=== PATIENT | female | born 1950 | race Caucasian/White ===

== ENCOUNTER → 2016-12-03 | Outpatient (CLI) | payer OTHER ==
[~2016-12-03] MED LIST: ACET-24 PO; ASPI81TA28 PO; BACTRIM PO; BUPRTAB51 PO; ESCI1TAB10 PO; FAMO20TA11 PO; IBUP-103 PO; MELO15TA4 PO; ONDA8TAB12 PO; RXC5 PO; SENNTAB23 PO; THY/30 PO; TRIA37.5 PO; ULT50X PO; VITAMIN D PO; XRL10 PO; [UNRECOGNIZED DRUG - OTHER] PO
== END | disposition home or self-care (01) ==
LOC: C.RDSM 13:59
PROVIDERS: ATTEND Physical Medicine & Rehabilitation Sports Medicine
DX: M25.561 Pain in right knee (principal)

== ENCOUNTER 2017-01-30 07:16 | Inpatient (IN) | payer OTHER ==
[2017-01-09 13:09] VITALS: BMI 37.0
--- NOTE | 2017-01-09 13:50 | PAT Medication Instructions ---
Service Date Jan 09, 2017. Current Home Medication List Aspirin (Aspirin Ec), 81 MG PO QDL Bupropion Hcl (Wellbutrin Xl), 1 TAB PO QDL Escitalopram Oxalate (Lexapro), 20 MG PO QDL Famotidine (Pepcid), 20 MG PO QDL Ibuprofen Tab (Advil), 400-800 MG PO Q6H PRN for Pain or Fever Meloxicam (Meloxicam), 1 TAB PO QDL Sennosides-Docusate Sodium (Stool Softener), 1 TAB PO QDL Thyroid ([place] Thyroid), 1 TAB PO QAM Triamterene/Hctz (Dyazide 37.5MG/25MG), 1 CAP PO QDL [vitamin d & C], 1 TAB PO QDL Medication Instructions For Your Scheduled Surgery - Check with surgeon for instructions: Ibuprofen Tab (Advil), 400-800 MG PO Q6H PRN for Pain or Fever Meloxicam (Meloxicam), 1 TAB PO QDL - Hold the following medications the morning of surgery: Triamterene/Hctz (Dyazide 37.5MG/25MG), 1 CAP PO QDL Sennosides-Docusate Sodium (Stool Softener), 1 TAB PO QDL Famotidine (Pepcid), 20 MG PO QDL - Take the following medications the morning of surgery with a sip of water: Aspirin (Aspirin Ec), 81 MG PO QDL Bupropion Hcl (Wellbutrin Xl), 1 TAB PO QDL Escitalopram Oxalate (Lexapro), 20 MG PO QDL Thyroid ([place] Thyroid), 1 TAB PO QAM - Take the following medications as scheduled the night before surgery: [vitamin d & C], 1 TAB PO QDL If you have any questions please call us at [phone] or [phone] or [phone]
--- NOTE | 2017-01-09 14:26 | DIAGNOSTIC IMAGING REPORT ---
CHEST PREADMISSION(PA/LAT) CLINICAL HISTORY: Preoperative chest COMPARISON STUDY: No previous studies for comparison. FINDINGS: The cardiac and mediastinal contours are normal. There is no evidence of focal pulmonary consolidation. There is no evidence of failure. No pleural effusions are visualized.[ There are surgical clips in the region of the esophagogastric junction. IMPRESSION: No active disease in the chest. Electronically signed by: Nick Tay M.D. 01/09/2017 2:25 PM Dictated Date/Time: 01/09/2017 2:24 PM
[2017-01-09 15:18] LABS: URINE APPEARANCE CLOUDY (CLEAR); URINE BILIRUBIN NEG (NEG); URINE COLOR DK YELLOW; URINE EPITHELIAL CELL AUTO >30 /lpf (0-5); URINE NITRITE NEG (NEG); URINE SPECIFIC GRAVITY 1.027 (1.000-1.030); UROBILINOGEN NEG (NEG)
[2017-01-09 15:23] LABS: MANUAL MICROSCOPIC REQUIRED? NO; PARTIAL THROMBOPLASTIN RATIO 1.1; PROTHROMBIN TIME (PATIENT) 10.7 SECONDS (9.0-12.0); REVIEW REQ? YES
[2017-01-10 06:09] LABS: ESTIMATED AVERAGE GLUCOSE 134 mg/dl; HA1C FLAG Normal (Normal)
--- NOTE | 2017-01-29 14:53 | HISTORY & PHYSICAL EXAMINATION ---
DATE OF ADMISSION: 01/30/2017 CHIEF COMPLAINT: Left knee pain. HISTORY OF PRESENT ILLNESS: The patient is a 66-year-old female with known osteoarthritis about her left knee. She has had previous corticosteroid as well as viscosupplementation injections. She continues to have significant pain and disability with activities of daily living and now desires to proceed with left total knee arthroplasty. 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 PAST SURGICAL HISTORY: Splenectomy secondary to lymphoma, , knee arthroscopies, cholecystectomy. MEDICATIONS: Wellbutrin-XL 300 mg daily, Lexapro 20 mg daily, aspirin 81 mg daily, Pepcid 20 mg twice daily, Meloxicam daily, triamterene/hydrochlorothiazide 37.5/25 daily, ProAir inhaler p.r.n. ALLERGIES: ADHESIVES CAUSE RASH AND BLISTERS. SOCIAL HISTORY AND REVIEW OF SYSTEMS: Noncontributory. PHYSICAL EXAMINATION: GENERAL: Well-nourished, well-developed female who appears her stated age. HEENT: Normocephalic, atraumatic, extraocular movements intact, oropharynx pink and moist. NECK: Supple without adenopathy. LUNGS: Clear to auscultation bilaterally. HEART: Regular rate and rhythm. ABDOMEN: Soft, nontender, nondistended. EXTREMITIES: Upper extremity within normal limits. The left knee has a varus alignment. Her range of motion is approximately 0-120 degrees. She has mild crepitus with range of motion. X-RAYS: X-rays were reviewed. She has [id number] arthritis of her medial compartment with complete loss of the joint space. There is mild osteophyte formation about the patellofemoral joint. ASSESSMENT: Left knee degenerative joint disease. PLAN: Risks versus benefits were discussed, consent was obtained. The patient's primary care physician is Dr. Grimaldo from [place]. We will proceed with left total knee arthroplasty upon preoperative workup and medical clearance. MORTEZA
[2017-01-30] VITALS (8 sets, daily range): BP systolic 99–129; BP diastolic 62–88; PULSE 63–80; TEMP 36.5–37.2; O2SAT 93–96; Ht 172.7 cm; Wt 110.1 kg
[~2017-01-30] VITALS: Ht 172.7 cm; Wt 110.1 kg
[~2017-01-30 07:16] MED LIST changes: -ACET-24 PO; +ACETAMINOPHEN 500 MG TAB PO SCH; -BACTRIM PO; +BUPIVACAINE 0.5 % 5 MG/1 ML PF 10ML VIAL ONE; +CeleBREX 200 MG CAP PO SCH; +DEXAMETHASONE 4 MG TAB PO SCH; +FAMOTIDINE 20 MG TAB PO SCH; +GABAPENTIN 300 MG CAP PO SCH; +LACTATED RINGER'S 1000ML 1,000 ML IV SCH; +LACTATED RINGER'S 1000ML 500 ML IV ONE; +LACTATED RINGER'S 1000ML IV SCH; +METOCLOPRAMIDE HCL 10 MG TAB PO SCH; -ONDA8TAB12 PO; +ROPIVACAINE 5MG/ML 30 ML 150 MG, BUPIVACAINE/EPINEPHR 0.5% MPF 30 ML, KETOROLAC TROMETH... INFIL SCH; -RXC5 PO; +SODIUM CHLORIDE IV SCH; -ULT50X PO; +VANCOMYCIN INJ 1,650 MG in SODIUM CHLORIDE 0.9% 500ML 500 ML IV SCH; +VANCOMYCIN IV SCH; -XRL10 PO
[2017-01-30] MEDS ORDERED: MIDAZOLAM HCL 1 MG/ML 2ML VIAL ONE (08:13)
[2017-01-30] MEDS ORDERED: FENTANYL CITRATE INJ 50 MCG/1 ML 2 ML VIAL ONE (08:13)
[2017-01-30] MEDS ORDERED: BACTRIM PO (08:25)
[2017-01-30] MEDS ORDERED: EpHEDrine SULFATE INJ 50 MG/ML AMP IV PRN (08:45)
[2017-01-30] MEDS ORDERED: ONDANSETRON INJ 2 MG/ML 2 ML VIAL IV PRN ×2 (08:45→12:45)
[2017-01-30] MEDS ORDERED: FENTANYL CITRATE INJ 50 MCG/1 ML 2 ML VIAL IV PRN (08:45)
[2017-01-30] MEDS ORDERED: ATROPINE SULFATE 0.1 MG/ML 5ML SYR IV PRN (08:45)
--- NOTE | 2017-01-30 08:49 | History & Physical Bridge Note ---
H&P Re-Evaluation Bridge Note: I have examined the patient, reviewed the History & Physical and in the interval since the performance of the History & Physical I have noted the following changes of clinical significance: No changes noted
[2017-01-30] MEDS ORDERED: POVIDONE-IODINE OP SOLN 30 ML BTL ONE (10:20)
[2017-01-30] MEDS ORDERED: BACITRACIN 50000 UNIT VIAL ONE (10:20)
[2017-01-30] MEDS ORDERED: ORTHO JOINT ANESTHETIC ONE (10:20)
[2017-01-30] MEDS ORDERED: PROPOFOL IV EMULSION 10 MG/ML 20 ML VIAL IV ONE (11:19)
[2017-01-30] MEDS ORDERED: LIDOCAINE HCL 2% 2 ML VIAL (20MG/ML) ONE (11:19)
--- NOTE | 2017-01-30 11:56 | [facility] Post Operative Brief Note ---
Immediate Operative Summary Operative Date Jan 30, 2017. Pre-Operative Diagnosis Left knee degenerative joint disease Post-Operative Diagnosis Same as preoperative diagnosis Procedure(s) Performed Left total knee artrhoplasty, cemented, [place] Surgeon Dr. Sharp Admissions Manager Rn Surgeon(s) Rich Abdi PA-C Estimated Blood Loss 20cc Findings oa Specimens A. Left knee bone and tissue Disposition Recovery Room / PACU
--- NOTE | 2017-01-30 12:15 | OPERATIVE REPORT ---
DATE OF OPERATION: 01/30/2017 PREOPERATIVE DIAGNOSIS: Osteoarthritis, left knee. POSTOPERATIVE DIAGNOSIS: Osteoarthritis, left knee. PROCEDURE: Left total knee arthroplasty. SURGEON: Dr. Sharp. HEALTHCARE INSURANCE SALES AGENT: SAURABH Ng ANESTHESIA: Spinal. COMPLICATIONS: None. IMPLANTS USED: Femoral size 5 with pegs, tibial size 4, tibial poly 11, and patella size 36. OPERATION AND FINDINGS: Following induction of spinal anesthesia, the patient's left leg was prepped and draped in the usual sterile manner. Limb was exsanguinated with an Esmarch bandage and tourniquet was inflated to 350 mmHg. A longitudinal incision was made anteriorly. Subcutaneous tissue was sharply dissected. Electrocautery was used for hemostasis. Prepatellar bursa was incised and median parapatellar incision was performed. Patella was everted and the knee was flexed. Fat pad was removed to aid in visualization and the anterior and posterior cruciate ligaments were removed. The medial face of the tibia was cleared of soft tissue first with a Bovie and a Simeon elevator. This tissue was retracted posteriorly using a blunt Hohmann. A Velasquez retractor was used to expose the synovium above on the anterior aspect of the femur and this was removed down to bone. The PSI guide was placed on the distal femur and two pins were placed anteriorly and kept in position and two additional pins were placed distally and removed. The distal femoral cutting block was placed in position and the distal femoral cut was used in the +0 setting. Next, the cutting block was removed and the femoral 5 block was placed in the distal end of the femur. Care was taken to ensure appropriate external rotation and feeler gauge was used to ensure no notching would occur. The femoral block was centered on the distal femur and in the medial and lateral direction and was fixed using two bone screws. The gold pins were then removed. The oscillating saw was used to create the bone cuts and the distal femoral cutting block was removed and the reciprocating saw was used to further trim the femoral cuts as well as a deep in the area for the trochlear groove. Next, posterior condyle remnants were removed. Following this, a meniscal clamp and knife were utilized to remove the anterior portion of both medial and lateral meniscus. The proximal tibia PSI guide was placed into position and the proximal tibial cutting guide was screwed into position. The extra medullary alignment guide was utilized to ensure appropriate alignment. The proximal tibia was cut and the proximal tibial cutting block was removed and this bone fragment was removed. The appropriate guide was used to perform the notch cut on the distal femur and a lamina aligner typewriter and a cochlear knife were utilized to finish both medial and lateral meniscectomies to remove any remnants of the posterior or anterior cruciate ligaments. Following this, the distal femoral component was impacted into position and blunt Rafael was used to sublux the tibia anteriorly. The proximal tibia was sized and a 4 tibial tray was chosen as the size to be used. This was put into position and appropriate external rotation and a double check with extramedullary alignment guide was performed. The canal for the tibial stem was prepared first with a 17 mm drill and then the punch and a mallet and the trial tibial poly was placed. An 11 was chosen the size to be used. It was brought to extension and the patella was prepared with the patellar reamer. A 36 component was chosen the size to be used. The trial component was placed and knee was taken through a full range of motion and there was found to be no lateral subluxation of the tibia. No lateral release was required. The trials were all removed. The final components were obtained and assembled. Cement was mixed. The knee was thoroughly irrigated and the ortho mix was injected about the knee joint. The final components were cemented into position. After thoroughly suctioning and drying the bone ends, all excess cement was removed. The knee was held in extension while the cement hardened. The wound was irrigated and closed over a Hemovac drain. #1 Vicryl was used to close the extensor mechanism. Subcutaneous tissues closed using 0 Dexon. Skin was closed with beverley. Sterile dressing of Adaptic, 4 x 4's, sterile Webril, and Jewel was applied. The patient tolerated the procedure well. Due to the complex nature of the procedure, the entire surgery was performed with the operational assistance of SAURABH Ng. The computer assistant, under direct supervision, was involved in the actual performance of all aspects of the surgical procedure including hemostasis, tissue retraction and incision, instrument management, patient positioning, and wound closure. DISPOSITION: Recovery room stable. I attest to the content of the Intraoperative Record and any orders documented therein. Any exception s are noted below.
[2017-01-30] MEDS ORDERED: MoRPHine SULFATE 2 MG/ML CARP IV PRN (12:45)
[2017-01-30] MEDS ORDERED: BISACODYL 10 MG SUPP PR PRN (12:45)
[2017-01-30] MEDS ORDERED: MoRPHine SULFATE 4 MG/ML 1 ML CARP\\VIAL IV PRN (12:45)
[2017-01-30] MEDS ORDERED: ALUMINUM/MAGNESIUM/SIMETH (MAALOX MAX) 30 ML UDC PO PRN (12:45)
[2017-01-30] MEDS ORDERED: MAGNESIUM HYDROXIDE SUSP 30 ML UDC PO PRN (12:45)
--- NOTE | 2017-01-30 13:56 | Anesthesiology Progress Note ---
Anesthesia Post Op Note Date & Time Jan 30, 2017 at 13:56 Vital Signs Pain Intensity: 0 Vital Signs Past 12 Hours Date Time Temp Pulse Resp B/P (MAP) Pulse Ox O2 Delivery O2 Flow Rate FiO2 01/30/17 13:50 71 12 102/58 94 Nasal Cannula 2 01/30/17 13:40 36.9 68 10 110/60 94 Nasal Cannula 2 01/30/17 13:30 65 9 98/57 94 Nasal Cannula 2 01/30/17 13:20 68 13 103/59 94 Nasal Cannula 2 01/30/17 13:10 64 11 96/60 94 Nasal Cannula 2 01/30/17 13:00 65 13 107/60 94 Nasal Cannula 2 01/30/17 12:50 70 9 115/60 96 Nasal Cannula 2 01/30/17 12:40 75 18 107/63 97 Oxymask 10 01/30/17 12:31 37.6 79 13 100/60 98 Oxymask 10 01/30/17 07:48 36.5 75 20 129/88 95 Notes Mental Status: alert / awake / arousable, participated in evaluation Pt Amnestic to Procedure: Yes Nausea / Vomiting: adequately controlled Pain: adequately controlled Airway Patency, RR, SpO2: stable & adequate BP & HR: stable & adequate Hydration State: stable & adequate Neuraxial Anesthesia: was administered, sensory block is resolving Anesthetic Complications: no major complications apparent
--- NOTE | 2017-01-30 14:02 | DIAGNOSTIC IMAGING REPORT ---
TWO VIEWS LEFT KNEE CLINICAL HISTORY: Postoperative examination. FINDINGS: AP and crosstable lateral portable views of the left knee are obtained. A left knee arthroplasty is in near anatomic alignment. There has been undersurface remodeling of the patella. No acute fracture is seen. There are expected postoperative changes around the knee including skin clips, a surgical drain, soft tissue edema, and subcutaneous gas. IMPRESSION: Expected postoperative changes status post left knee arthroplasty. No acute fracture is seen. Electronically signed by: Brennan Yeung M.D. 01/30/2017 2:01 PM Dictated Date/Time: 01/30/2017 2:01 PM
[2017-01-30] MEDS: SODIUM CHLORIDE 0.9% 1000ML 1,000 ML IV SCH ×2 (14:27→22:09)
--- NOTE | 2017-01-30 15:37 | Medical Consult ---
Consultation Date of Consultation: Jan 30, 2017. Attending Physician: Yassine Sharp M.D. Reason for Consultation: post op management History of Present Illness The patient is a 66-year-old female with known OA in her left knee who has failed OP conservative management and admitted for left TKA. Pt is currently postop and consulted to our services for post op management. 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 Social History Smoking Status: Never Smoker Smokeless Tobacco Use: No Drug Use: none Marital Status: Allergies Coded Allergies: Amoxicillin (Verified Allergy, Unknown, itching, 01/09/17) Uncoded Allergies: ADHESIVES (Allergy, Unknown, blistering, 01/09/17) Current Inpatient Medications Current Inpatient Medications Medications (Trade) Dose Ordered Sig/[place] Route Start Time Stop Time Status Last Admin Dose Admin Bupropion HCl (Wellbutrin-Xl Tab) 300 mg QDL PO 01/31/17 12:30 03/02/17 12:29 Escitalopram Oxalate (Lexapro Tab) 20 mg QDL PO 01/31/17 12:30 03/02/17 12:29 Famotidine (Pepcid Tab) 20 mg QDL PO 01/31/17 12:30 03/02/17 12:29 Thyroid ([place] Thyroid Tab) 30 mg DAILYBB PO 01/31/17 06:00 03/02/17 05:59 Triamterene/HCTZ (Dyazide 37.5/25 Mg Cap) 1 cap QDL PO 01/31/17 12:30 03/02/17 12:29 Morphine Sulfate (MoRPHine SULFATE INJ) 2 mg Q4HWA PRN IV 01/30/17 12:45 02/13/17 12:44 Morphine Sulfate (MoRPHine SULFATE INJ) 4 mg Q4HWA PRN IV 01/30/17 12:45 02/13/17 12:44 Sodium Chloride 1,000 ml @ 100 mls/hr Q10H IV 01/30/17 12:37 01/31/17 12:36 01/30/17 14:27 100 MLS/HR Vancomycin HCl 1600 mg/Sodium Chloride 532 ml @ 200 mls/hr Q12H IV 01/30/17 22:00 01/31/17 00:40 Oxycodone HCl (Roxicodone Immediate Rel Tab) 1 TABLET FOR PAIN RATING... Q4H PRN PO 01/30/17 12:45 02/13/17 12:44 Acetaminophen (Tylenol Tab) 1,000 mg Q8H PO 01/30/17 22:00 03/01/17 12:44 Magnesium Hydroxide (Milk Of Magnesia Susp) 30 ml Q6H PRN PO 01/30/17 12:45 03/01/17 12:44 Bisacodyl (Dulcolax Supp) 10 mg DAILY PRN TN 01/30/17 12:45 03/01/17 12:44 Senna (Senokot Tab) 17.2 mg HS PO 01/30/17 21:00 03/01/17 20:59 Docusate Sodium (coLACE CAP) 100 mg BID PO 01/30/17 21:00 03/01/17 20:59 Al Hydrox/Mg Hydrox/Simethicone (Maalox Max Susp) 15 ml Q4H PRN PO 01/30/17 12:45 03/01/17 12:44 Multivitamins (Multivitamin Tab) 1 tab QAM PO 01/31/17 09:00 03/02/17 08:59 Ondansetron HCl (Zofran Inj) 4 mg Q6H PRN IV 01/30/17 12:45 03/01/17 12:44 Ferrous Gluconate (Ferrous Gluconate Tab) 324 mg TIDM PO 01/30/17 17:45 03/01/17 17:59 Tramadol HCl (Ultram Tab) 1 tablet for pain rating... Q4H PRN PO 01/30/17 12:45 03/01/17 12:44 Rivaroxaban (Xarelto Tab) 10 mg Q24H PO 01/31/17 09:00 03/02/17 08:59 UNV Review of Systems Constitutional: No fever, No chills, No sweats, No weakness Respiratory: No cough, No sputum, No wheezing, No shortness of breath, No dyspnea on exertion Cardiovascular: No chest pain, No orthopnea, No PND, No edema Abdomen: No pain, No nausea, No vomiting, No diarrhea Musculoskeletal: No joint pain, No muscle pain, No swelling, No calf pain Genitourinary - Female: No dysuria, No urinary frequency, No urinary urgency, No urinary incontinence Neurologic: + numbness/tingling, No memory loss, No paralysis, No weakness Psychiatric: No depression symptoms, No anhedonism, No anxiety, No insomnia Endocrine: No fatigue, No excessive thirst Integumentary: No rash, No itch Physical Exam Date Time Temp Pulse Resp B/P (MAP) Pulse Ox O2 Delivery O2 Flow Rate FiO2 01/30/17 14:43 80 17 99/63 (75) 95 Nasal Cannula 2.0 01/30/17 14:10 96 Nasal Cannula 2.0 01/30/17 14:10 96 Nasal Cannula 2.0 01/30/17 14:10 37.2 72 16 105/62 (76) 96 Nasal Cannula 2.0 01/30/17 14:00 69 12 108/51 94 Nasal Cannula 2 01/30/17 13:50 71 12 102/58 94 Nasal Cannula 2 01/30/17 13:40 36.9 68 10 110/60 94 Nasal Cannula 2 01/30/17 13:30 65 9 98/57 94 Nasal Cannula 2 01/30/17 13:20 68 13 103/59 94 Nasal Cannula 2 01/30/17 13:10 64 11 96/60 94 Nasal Cannula 2 01/30/17 13:00 65 13 107/60 94 Nasal Cannula 2 01/30/17 12:50 70 9 115/60 96 Nasal Cannula 2 01/30/17 12:40 75 18 107/63 97 Oxymask 10 01/30/17 12:31 37.6 79 13 100/60 98 Oxymask 10 01/30/17 07:48 36.5 75 20 129/88 95 General Appearance: WD/WN, no apparent distress Head: normocephalic, atraumatic Eyes: normal inspection, PERRL, EOMI, sclerae normal Neck: supple, no adenopathy, thyroid normal, no JVD Respiratory/Chest: chest non-tender, lungs clear, normal breath sounds, no respiratory distress Cardiovascular: regular rate, rhythm, no edema, no gallop, no JVD Abdomen/GI: normal bowel sounds, non tender, soft, no organomegaly Extremities/Musculoskelatal: normal inspection, no calf tenderness, normal capillary refill, no pedal edema Neurologic/Psych: no motor/sensory deficits, alert, normal mood/affect, oriented x 3 Skin: normal color, warm/dry, no rash Lymphatic: no adenopathy Assessment & Plan Pt is a 66 yo female s/p left TKA consulted to our services for postop management Left TKA, pain controlled at this time, will obtain CBC to monitor for acute blood loss anemia. PT/OT, dispo per primary team HTN - Currently hypotensive, cont meds, may need to hold dyazide if worsening GERD - Cont PPI Hypothyroidism - Cont home meds Depression - Cont lexapro Hx of asplenia due to lymphoma DVT ppx with xarelto
[2017-01-30 16:09] LABS: BASO % 0.1 %; BASO ABS # 0.01 K/uL (0-0.2); COMPLETE YES; HEMATOCRIT 35.2 % (37-47); IG% 0.3 %; LYMPH % 8.8 %; LYMPH ABS # 1.02 K/uL (1.2-3.4); MEAN CELL VOLUME 89.3 fL (80-100); MEAN CORPUSCULAR HEMOGLOBIN 30.5 pg (25-34); MEAN CORPUSCULAR HGB CONC 34.1 g/dl (32-36); MONO % 0.9 %; NEUT % 89.9 %; PLATELET COUNT 384 K/uL (130-400); RED BLOOD COUNT 3.94 M/uL (4.2-5.4); WHITE BLOOD COUNT 11.64 K/uL (4.8-10.8)
[2017-01-30 16:33] LABS: CALCIUM 8.7 mg/dl (8.5-10.1); CREATININE 1.1 mg/dl (0.60-1.20); POTASSIUM 4.1 mmol/L (3.5-5.1)
[2017-01-30] MEDS: FERROUS GLUCONATE 324 MG TAB PO SCH (18:28)
[2017-01-30] MEDS: DOCUSATE SODIUM 100 MG CAP PO SCH (20:22)
[2017-01-30] MEDS: SENNA 8.6 MG TAB PO SCH (20:23)
[2017-01-30] MEDS ORDERED: VANCOMYCIN INJ 1,600 MG in SODIUM CHLORIDE 0.9% 500ML 500 ML IV SCH (22:00)
[2017-01-30] MEDS: ACETAMINOPHEN 500 MG TAB PO SCH (22:10)
[2017-01-31 03:58] VITALS: BP 120/65; PULSE 75; TEMP 36.8; O2SAT 95
[2017-01-31] MEDS: ARMOUR THYROID 30 MG TAB PO SCH (05:44)
[2017-01-31] MEDS: ACETAMINOPHEN 500 MG TAB PO SCH ×3 (05:45→21:38)
[2017-01-31 06:50] LABS: HEMATOCRIT 30.9 % (37-47); MEAN CELL VOLUME 89.3 fL (80-100); MEAN CORPUSCULAR HEMOGLOBIN 30.3 pg (25-34); MEAN PLATELET VOLUME 10.3 fL (7.4-10.4); PLATELET COUNT 357 K/uL (130-400); RED BLOOD COUNT 3.46 M/uL (4.2-5.4); WHITE BLOOD COUNT 23.16 K/uL (4.8-10.8)
[2017-01-31 06:56] LABS: BUN/CREATININE RATIO 26.3 (10-20); CALCIUM 8.1 mg/dl (8.5-10.1); CREATININE 0.88 mg/dl (0.60-1.20); POTASSIUM 4.1 mmol/L (3.5-5.1)
[2017-01-31 07:22] VITALS: BP 96/59; PULSE 90; TEMP 36.7; O2SAT 96
--- NOTE | 2017-01-31 07:55 | Orthopedic Progress Note ---
Orthopedic Progress Note Date of Service Jan 31, 2017. Subjective Post OP Day: 1 Reports: feeling well Objective N/V intact, dressing C/D/I (Hemovac in place), toes mobile Date Time Temp Pulse Resp B/P (MAP) Pulse Ox O2 Delivery O2 Flow Rate FiO2 01/31/17 07:22 36.7 90 17 96/59 (71) 96 Room Air 01/31/17 03:58 36.8 75 16 120/65 (83) 95 Room Air 01/30/17 23:17 Room Air 01/30/17 23:15 36.9 80 17 113/65 (81) 94 Room Air 01/30/17 19:21 36.8 78 18 115/75 (88) 94 Room Air 01/30/17 17:08 36.6 64 18 106/65 (79) 96 Room Air 01/30/17 16:31 36.6 63 18 110/69 (83) 93 Room Air 01/30/17 15:21 36.6 65 102/63 (76) 94 Nasal Cannula 2.0 01/30/17 14:43 80 17 99/63 (75) 95 Nasal Cannula 2.0 01/30/17 14:10 96 Nasal Cannula 2.0 01/30/17 14:10 96 Nasal Cannula 2.0 01/30/17 14:10 37.2 72 16 105/62 (76) 96 Nasal Cannula 2.0 01/30/17 14:00 69 12 108/51 94 Nasal Cannula 2 01/30/17 13:50 71 12 102/58 94 Nasal Cannula 2 01/30/17 13:40 36.9 68 10 110/60 94 Nasal Cannula 2 01/30/17 13:30 65 9 98/57 94 Nasal Cannula 2 01/30/17 13:20 68 13 103/59 94 Nasal Cannula 2 01/30/17 13:10 64 11 96/60 94 Nasal Cannula 2 01/30/17 13:00 65 13 107/60 94 Nasal Cannula 2 01/30/17 12:50 70 9 115/60 96 Nasal Cannula 2 01/30/17 12:40 75 18 107/63 97 Oxymask 10 01/30/17 12:31 37.6 79 13 100/60 98 Oxymask 10 Laboratory Results 24 Hours: Test 01/30/17 15:51 01/31/17 05:58 White Blood Count 11.64 K/uL Red Blood Count 3.94 M/uL Hemoglobin 12.0 g/dL 10.5 g/dL Hematocrit 35.2 % 30.9 % Mean Corpuscular Volume 89.3 fL Mean Corpuscular Hemoglobin 30.5 pg Mean Corpuscular Hemoglobin Concent 34.1 g/dl Platelet Count 384 K/uL Mean Platelet Volume 10.0 fL Neutrophils (%) (Auto) 89.9 % Lymphocytes (%) (Auto) 8.8 % Monocytes (%) (Auto) 0.9 % Eosinophils (%) (Auto) 0.0 % Basophils (%) (Auto) 0.1 % Neutrophils # (Auto) 10.48 K/uL Lymphocytes # (Auto) 1.02 K/uL Monocytes # (Auto) 0.10 K/uL Eosinophils # (Auto) 0.00 K/uL Basophils # (Auto) 0.01 K/uL Assessment & Plan Assessment: 66 yo female stable POD #1 s/p left TKA Plan: 1. Med management 2. DVT prophylaxis- Xarelto, SCDs 3. PT/OT 4. D/C planning- home w/ HH
--- NOTE | 2017-01-31 07:56 | Discharge Instructions ---
Discharge Instructions Date of Service Jan 31, 2017. Admission Reason for Admission: Left Knee Osteoarthritis Discharge Discharge Diagnosis / Problem: Left knee arthritis Discharge Goals Goal(s): Decrease discomfort, Improve function Activity Recommendations Activity Limitations: as noted below Weightbearing Status: Left weightbearing (as tolerated) . Instructions / Follow-Up Instructions / Follow-Up ACTIVITY RECOMMENDATIONS: SELF CARE INSTRUCTIONS AFTER TOTAL KNEE REPLACEMENT A. You may need to continue a physical therapy program after discharge from the hospital. There are several options available to you. Your doctor will assist you in selecting the best one for you. 1. An out-patient facility 2 to 3 times a week for therapy or home therapy. 2. Continue working on all exercises taught to you in the hospital. Your goals should be to increase bending of your knee to 90 degrees and beyond and to fully straighten your knee. B. You may progress at your own pace from walking with a walker or crutches to a cane; then to no assistive devices. C. Make walking a part of your daily routine. Be up as much as comfortable with rest periods throughout the day. Rest with leg elevation is very important. Use the ice wrap frequently for the first 3-4 weeks. D. There are no restrictions on activities. You may ride in a car, shop, participate in feeder/folder and all social activities. E. Wear the long elastic stockings (ESTER hose) 20 hours a day for 2 weeks after surgery. They can be removed several times a day for laundering and for a bath. F. You may shower, no tub baths until cleared by your doctor. SPECIAL CARE INSTRUCTIONS: VERY IMPORTANT TO READ AND REVIEW A. There are a few signs you need to watch for after you are home. Call [facility] if you notice any of the followin. Increased severe knee pain. Some pain is expected especially when you exercise. 2. Increased swelling in your leg or knee; pain or swelling of the calf muscle in either lower leg. 3. Any fluid drainage from the incision. 4. Shortness of breath or chest pain. B. Please call [facility] at if you have any concerns or questions about your operation or recovery. The doctor or his nurse will return your call promptly. C. You must take antibiotics before dental work, bladder, bowel or other surgery. Your doctor will provide you with a permanent care to carry describing this precaution. IMPORTANT: * REMEMBER TO TAKE ASPIRIN, 81 MG, TWICE DAILY FOR 4 WEEKS UNLESS OTHERWISE DIRECTED. THIS IS YOUR BLOOD THINNER. * HIGH RISK PATIENTS MAY BE PRESCRIBED A STRONGER BLOOD THINNER. THIS WILL BE PROVIDED AT DISCHARGE. * CALL IF INCREASED PAIN, REDNESS, DRAINAGE OR FEVER GREATER THAT 101. * WEAR ESTER HOSE 20 HOURS PER DAY FOR 2 WEEKS. FOLLOW UP VISIT: If appointment is not already scheduled: Please call [facility] [place] to make a follow-up appointment for 2 weeks after your surgery at . Current Hospital Diet Patient's current hospital diet: Regular Diet Discharge Diet Recommended Diet: Regular Diet Procedures Procedures Performed: Left total knee artrhoplasty, cemented, [place] Pending Studies Studies pending at discharge: no Laboratory Results Hemoglobin A1c Test 01/09/17 13:55 Range/Units Estimated Average Glucose 134 mg/dl Hemoglobin A1c 6.3 H 4.5-5.6 % Medical Emergencies . Who to Call and When: Medical Emergencies: If at any time you feel your situation is an emergency, please call 911 immediately. . Non-Emergent Contact Non-Emergency issues call your: Surgeon Call Non-Emergent contact if: temperature is above 101.5, your pain is not controlled, wound has increased drainage, wound has increased redness . "Provider Documentation" section prepared by Jose Oleary PA-C. . VTE Core Measure Inpt VTE Proph given/why not?: Other Anticoagulation (Xarelto), T.E.D. Stockings, SCD's [place] Drug Monitoring Program Search Results: patient reviewed within database, no issues identified
[2017-01-31] MEDS: DOCUSATE SODIUM 100 MG CAP PO SCH ×2 (08:15→20:50)
[2017-01-31] MEDS: MULTIVITAMIN TAB PO SCH (08:16)
[2017-01-31] MEDS: FERROUS GLUCONATE 324 MG TAB PO SCH ×3 (08:17→16:54)
[2017-01-31] MEDS: RIVAROXABAN 10 MG TAB PO SCH (08:17)
[2017-01-31] MEDS: OXYCODONE HCL IR 5 MG TAB (IMMEDIATE RELEASE) PO PRN ×4 (08:20→23:27)
[2017-01-31 10:12] VITALS: BP 103/65; PULSE 65; O2SAT 94
[2017-01-31 11:11] VITALS: BP 105/60; PULSE 66; TEMP 36.7; O2SAT 95
[2017-01-31] MEDS: TRAMADOL HCL 50 MG TAB PO PRN ×2 (11:51→22:59)
[2017-01-31] MEDS: TRIAMTERENE/HCTZ 37.5/25MG CAP PO SCH (12:40)
[2017-01-31] MEDS: FAMOTIDINE 20 MG TAB PO SCH (12:40)
[2017-01-31] MEDS: BuPROPion XL 300 MG TABCR PO SCH (12:41)
[2017-01-31] MEDS: ESCITALOPRAM OXALATE 20 MG TAB PO SCH (12:41)
[2017-01-31 15:06] VITALS: BP 124/66; PULSE 69; TEMP 36.5; O2SAT 98
--- NOTE | 2017-01-31 17:32 | Progress Note ---
Subjective Date of Service: Jan 31, 2017. Subjective Pt evaluation today including: conversation w/ patient, physical exam, chart review, lab review, review of inpatient medication list feeling good. no f/c/s. did feel kind of hot and flushed but no sweats. no dysuria. did have UTI prior to admission but treated with bactrim. no current dysuria or LUTS. no cough no sob Review of Systems all other ROS otherwise negative except for as above Objective Vital Signs Date Time Temp Pulse Resp B/P (MAP) Pulse Ox O2 Delivery O2 Flow Rate FiO2 01/31/17 16:40 Room Air 01/31/17 15:06 36.5 69 18 124/66 (85) 98 Room Air 01/31/17 11:11 36.7 66 18 105/60 (75) 95 Room Air 01/31/17 10:12 65 94 01/31/17 08:10 Room Air 01/31/17 07:22 36.7 90 17 96/59 (71) 96 Room Air 01/31/17 03:58 36.8 75 16 120/65 (83) 95 Room Air 01/30/17 23:17 Room Air 01/30/17 23:15 36.9 80 17 113/65 (81) 94 Room Air 01/30/17 19:21 36.8 78 18 115/75 (88) 94 Room Air Physical Exam General Appearance: no apparent distress Eyes: EOMI ENT: hearing grossly normal Neck: trachea midline Respiratory/Chest: no respiratory distress, no accessory muscle use Extremities: normal range of motion Neurologic/Psychiatric: 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, alert, normal mood/affect Skin: normal color, warm/dry Laboratory Results Last 24 Hours Test 01/31/17 05:58 White Blood Count 23.16 K/uL Red Blood Count 3.46 M/uL Hemoglobin 10.5 g/dL Hematocrit 30.9 % Mean Corpuscular Volume 89.3 fL Mean Corpuscular Hemoglobin 30.3 pg Mean Corpuscular Hemoglobin Concent 34.0 g/dl RDW Standard Deviation 47.0 fL RDW Coefficient of Variation 14.2 % Platelet Count 357 K/uL Mean Platelet Volume 10.3 fL Sodium Level 140 mmol/L Potassium Level 4.1 mmol/L Chloride Level 111 mmol/L Carbon Dioxide Level 22 mmol/L Anion Gap 7.0 mmol/L Blood Urea Nitrogen 23 mg/dl Creatinine 0.88 mg/dl Est Creatinine Clear Calc Drug Dose 82.9 ml/min Estimated GFR () 79.9 Estimated GFR (Non- 68.9 BUN/Creatinine Ratio 26.3 Random Glucose 150 mg/dl Calcium Level 8.1 mg/dl Hepatitis C Antibody Screen NEG Assessment and Plan Left TKA, pain controlled at this time, otherwise per ortho leukocytosis - no clear s/s infection - suspect steroid effect + asplenic; however, since asplenic also more prone to infection -- follow serial exams, check urine culture since recent infection. no role for empiric abx at this time. if WBC doesn't improve, consider inflammatory markers mild acute blood loss anemia - hemodynamically stable. HTN -BP reasonable. 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
[2017-01-31] MEDS: SENNA 8.6 MG TAB PO SCH (20:50)
[2017-01-31 23:48] VITALS: BP 101/63; PULSE 73; TEMP 37; O2SAT 93
[2017-02-01] MEDS: OXYCODONE HCL IR 5 MG TAB (IMMEDIATE RELEASE) PO PRN ×3 (03:34→13:14)
[2017-02-01] MEDS: TRAMADOL HCL 50 MG TAB PO PRN ×2 (03:58→11:50)
[2017-02-01] MEDS: ARMOUR THYROID 30 MG TAB PO SCH (05:49)
[2017-02-01] MEDS: ACETAMINOPHEN 500 MG TAB PO SCH ×2 (05:49→13:14)
[2017-02-01 06:20] LABS: BASO % 0.4 %; BASO ABS # 0.05 K/uL (0-0.2); COMPLETE YES; EOS % 1.8 %; HEMATOCRIT 30.3 % (37-47); IG% 0.4 %; LYMPH % 30.1 %; LYMPH ABS # 4.23 K/uL (1.2-3.4); MEAN CELL VOLUME 90.4 fL (80-100); MEAN CORPUSCULAR HEMOGLOBIN 30.1 pg (25-34); MEAN CORPUSCULAR HGB CONC 33.3 g/dl (32-36); MONO % 9.7 %; NEUT % 57.6 %; PLATELET COUNT 332 K/uL (130-400); RED BLOOD COUNT 3.35 M/uL (4.2-5.4); WHITE BLOOD COUNT 14.05 K/uL (4.8-10.8)
[2017-02-01 07:48] VITALS: BP 104/64; PULSE 65; TEMP 36.7; O2SAT 95
--- NOTE | 2017-02-01 08:22 | Orthopedic Progress Note ---
Orthopedic Progress Note Date of Service Feb 01, 2017. Subjective Post OP Day: 2 Reports: feeling well Objective calves soft nontender, N/V intact, dressing C/D/I, toes mobile Date Time Temp Pulse Resp B/P (MAP) Pulse Ox O2 Delivery O2 Flow Rate FiO2 02/01/17 07:48 36.7 65 16 104/64 (77) 95 Room Air 02/01/17 07:40 Room Air 01/31/17 23:48 37.0 73 16 101/63 (76) 93 Room Air 01/31/17 23:25 Room Air 01/31/17 16:40 Room Air 01/31/17 15:06 36.5 69 18 124/66 (85) 98 Room Air 01/31/17 11:11 36.7 66 18 105/60 (75) 95 Room Air 01/31/17 10:12 65 94 Laboratory Results 24 Hours: Test 02/01/17 06:00 White Blood Count 14.05 K/uL Red Blood Count 3.35 M/uL Hemoglobin 10.1 g/dL Hematocrit 30.3 % Mean Corpuscular Volume 90.4 fL Mean Corpuscular Hemoglobin 30.1 pg Mean Corpuscular Hemoglobin Concent 33.3 g/dl Platelet Count 332 K/uL Mean Platelet Volume 10.0 fL Neutrophils (%) (Auto) 57.6 % Lymphocytes (%) (Auto) 30.1 % Monocytes (%) (Auto) 9.7 % Eosinophils (%) (Auto) 1.8 % Basophils (%) (Auto) 0.4 % Neutrophils # (Auto) 8.11 K/uL Lymphocytes # (Auto) 4.23 K/uL Monocytes # (Auto) 1.36 K/uL Eosinophils # (Auto) 0.25 K/uL Basophils # (Auto) 0.05 K/uL Assessment & Plan Assessment: 66 yo female stable POD #2 s/p left TKA Plan: 1. Med management 2. DVT prophylaxis- Xarelto, SCDs 3. PT/OT 4. D/C planning- home w/ HH
[2017-02-01] MEDS ORDERED: ACET-24 PO (08:26)
[2017-02-01] MEDS ORDERED: ULT50X PO (08:26)
[2017-02-01] MEDS ORDERED: XRL10 PO (08:26)
[2017-02-01] MEDS ORDERED: ONDA8TAB12 PO (08:26)
[2017-02-01] MEDS ORDERED: RXC5 PO (08:26)
[2017-02-01] MEDS: MULTIVITAMIN TAB PO SCH (08:32)
[2017-02-01] MEDS: FERROUS GLUCONATE 324 MG TAB PO SCH (08:34)
[2017-02-01] MEDS: RIVAROXABAN 10 MG TAB PO SCH (08:35)
[2017-02-01 08:48] VITALS: BP 104/64; PULSE 65; TEMP 36.7; O2SAT 95
[2017-02-01] MEDS: DOCUSATE SODIUM 100 MG CAP PO SCH (09:41)
[2017-02-01] MEDS: ESCITALOPRAM OXALATE 20 MG TAB PO SCH (13:08)
[2017-02-01] MEDS: FAMOTIDINE 20 MG TAB PO SCH (13:08)
[2017-02-01] MEDS: BuPROPion XL 300 MG TABCR PO SCH (13:09)
[2017-02-01] MEDS: TRIAMTERENE/HCTZ 37.5/25MG CAP PO SCH (13:09)
--- NOTE | 2017-02-01 18:28 | Progress Note ---
Subjective Date of Service: Feb 01, 2017. Subjective Pt evaluation today including: conversation w/ patient, physical exam, chart review, lab review, review of inpatient medication list feeling good overall knee pain reasonable looking forward to going home no f/c/s WBC improved urine culture negative Review of Systems all other ROS otherwise negative except for as above Objective Vital Signs Date Time Temp Pulse Resp B/P (MAP) Pulse Ox O2 Delivery O2 Flow Rate FiO2 02/01/17 08:48 36.7 65 16 95 Room Air 02/01/17 07:48 36.7 65 16 104/64 (77) 95 Room Air 02/01/17 07:40 Room Air 01/31/17 23:48 37.0 73 16 101/63 (76) 93 Room Air 01/31/17 23:25 Room Air Physical Exam General Appearance: no apparent distress Eyes: EOMI ENT: hearing grossly normal Neck: trachea midline Respiratory/Chest: no respiratory distress, no accessory muscle use Extremities: normal range of motion 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, alert, normal mood/affect Skin: normal color, warm/dry Laboratory Results Last 24 Hours Test 02/01/17 06:00 White Blood Count 14.05 K/uL Red Blood Count 3.35 M/uL Hemoglobin 10.1 g/dL Hematocrit 30.3 % Mean Corpuscular Volume 90.4 fL Mean Corpuscular Hemoglobin 30.1 pg Mean Corpuscular Hemoglobin Concent 33.3 g/dl Platelet Count 332 K/uL Mean Platelet Volume 10.0 fL Neutrophils (%) (Auto) 57.6 % Lymphocytes (%) (Auto) 30.1 % Monocytes (%) (Auto) 9.7 % Eosinophils (%) (Auto) 1.8 % Basophils (%) (Auto) 0.4 % Neutrophils # (Auto) 8.11 K/uL Lymphocytes # (Auto) 4.23 K/uL Monocytes # (Auto) 1.36 K/uL Eosinophils # (Auto) 0.25 K/uL Basophils # (Auto) 0.05 K/uL RDW Standard Deviation 48.6 fL RDW Coefficient of Variation 14.6 % Immature Granulocyte % (Auto) 0.4 % Immature Granulocyte # (Auto) 0.05 K/uL Assessment and Plan Left TKA, pain controlled at this time, otherwise per ortho leukocytosis - no clear s/s infection - suspect steroid effect + asplenic; improved dramatically and no s/s infection. stable for home mild acute blood loss anemia - hemodynamically stable. HTN -BP reasonable. 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
--- NOTE | 2017-02-06 15:34 | DISCHARGE SUMMARY ---
DISCHARGE DIAGNOSIS: Degenerative joint disease, left knee. 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 CONSULTS: Dr. Madi Michaud. COMPLICATIONS: None. PROCEDURE: Left total knee arthroplasty performed by Dr. Sharp on 01/30/2017. BRIEF HISTORY: As dictated in history and physical. HOSPITAL SUMMARY: The patient was admitted on the above date and had the above-noted surgery performed which she tolerated well. Postoperatively, she was started on her physical therapy protocol as well as occupational therapy, pain management and DVT prophylaxis. Dr. Michaud was consulted for postoperative medical management and the patient was continued to be followed by his group during her stay. She was continued to progress with her PT and by 02/01/2017, she was feeling well, calves was nontender, neurovascularly intact. Dressings clean, dry and intact. Toes were mobile. Vital signs were stable. She was afebrile. Hemoglobin was 10.1. She was progressing with her PT and it was felt she could be discharged to home with home health services. For further review, please see chart. LABORATORY AND X-RAY DATA: As per chart. DISCHARGE INSTRUCTIONS: The patient was discharged to home in satisfactory condition on 02/01/2017. DIET: Regular. ACTIVITY: Follow TK instruction sheets and special care instructions as noted, weightbearing as tolerated, left lower extremity and follow up with Dr. Sharp in 2 weeks. The patient to call for appointment if one has not been made for you. DISCHARGE MEDICATIONS: Acetaminophen 1000 mg p.o. q. 8 hours for 14 days, Zofran 8 mg p.o. q. 8 hours p.r.n. nausea, oxycodone 5-10 mg p.o. q. 4 hours p.r.n. pain, rivaroxaban 10 mg p.o. every day x10, tramadol 50-100 mg p.o. q. 4 hours p.r.n. Resume home meds including aspirin 81 mg p.o. daily, bupropion 300 mg p.o. every day, Lexapro 20 mg p.o. every day, famotidine 20 mg p.o. daily, stool softener 1 tab p.o. daily, [place] thyroid 30 mg p.o. q.a.m., Dyazide 37.5 mg/25 one cap p.o. daily, Bactrim p.o. b.i.d. as directed and vitamin D and C daily. Stop taking Meloxicam and ibuprofen.
== END 2017-02-01 14:11 | disposition home health service (06) | DRG 470 ==
LOC: C.ACU 07:16 → C.3E 09:54 → ENRESERV 13:26
PROC: 0SRD0J9 Replacement of Left Knee Joint with Synthetic Substitute, Cemented, Open Approach (ICD-10-PCS; principal; 2017-01-30 09:45)
DX: M17.12 Unilateral primary osteoarthritis, left knee (principal); D62 Acute posthemorrhagic anemia; J45.909 Unspecified asthma, uncomplicated; F32.9 Major depressive disorder, single episode, unspecified; K21.9 Gastro-esophageal reflux disease without esophagitis; E03.9 Hypothyroidism, unspecified; I10 Essential (primary) hypertension; E66.9 Obesity, unspecified; Z51.81 Encounter for therapeutic drug level monitoring; Z79.899 Other long term (current) drug therapy; Z79.82 Long term (current) use of aspirin; Z85.72 Personal history of non-Hodgkin lymphomas; Z90.81 Acquired absence of spleen; Z68.36 Body mass index [BMI] 36.0-36.9, adult

== ENCOUNTER → 2017-06-06 | Outpatient (CLI) | payer OTHER ==
[~2017-06-06] MED LIST changes: +ACET-24 PO; -ACETAMINOPHEN 500 MG TAB PO SCH; +BACTRIM PO; -BUPIVACAINE 0.5 % 5 MG/1 ML PF 10ML VIAL ONE; -CeleBREX 200 MG CAP PO SCH; -DEXAMETHASONE 4 MG TAB PO SCH; -FAMOTIDINE 20 MG TAB PO SCH; -GABAPENTIN 300 MG CAP PO SCH; -IBUP-103 PO; -LACTATED RINGER'S 1000ML 1,000 ML IV SCH; -LACTATED RINGER'S 1000ML 500 ML IV ONE; -LACTATED RINGER'S 1000ML IV SCH; -MELO15TA4 PO; -METOCLOPRAMIDE HCL 10 MG TAB PO SCH; -ROPIVACAINE 5MG/ML 30 ML 150 MG, BUPIVACAINE/EPINEPHR 0.5% MPF 30 ML, KETOROLAC TROMETH... INFIL SCH; +RXC5 PO; -SODIUM CHLORIDE IV SCH; +ULT50X PO; -VANCOMYCIN INJ 1,650 MG in SODIUM CHLORIDE 0.9% 500ML 500 ML IV SCH; -VANCOMYCIN IV SCH; +XRL10 PO
[2017-06-06 17:14] LABS: BASO % 0.6 %; BASO ABS # 0.05 K/uL (0-0.2); EOS % 2.6 %; EOS ABS # 0.24 K/uL (0-0.5); HEMATOCRIT 39.1 % (37-47); HEMOGLOBIN 13.2 g/dL (12.0-16.0); IG# 0.01 K/uL (0.00-0.02); LYMPH % 33.7 %; LYMPH ABS # 3.06 K/uL (1.2-3.4); MEAN CELL VOLUME 87.9 fL (80-100); MEAN CORPUSCULAR HEMOGLOBIN 29.7 pg (25-34); MEAN CORPUSCULAR HGB CONC 33.8 g/dl (32-36); MEAN PLATELET VOLUME 10.8 fL (7.4-10.4); MONO % 7.8 %; MONO ABS # 0.71 K/uL (0.11-0.59); NEUT % 55.2 %; PLATELET COUNT 491 K/uL (130-400); RED CELL DISTRIBUTION WIDTH CV 14.8 % (11.5-14.5); RED CELL DISTRIBUTION WIDTH SD 47.4 fL (36.4-46.3); WHITE BLOOD COUNT 9.07 K/uL (4.8-10.8)
[2017-06-06 17:20] LABS: PTT PATIENT 26.7 SECONDS (21.0-31.0)
[2017-06-06 17:41] LABS: ALBUMIN 3.6 gm/dl (3.4-5.0); BLOOD UREA NITROGEN 30 mg/dl (7-18); CALCIUM 9.1 mg/dl (8.5-10.1); CARBON DIOXIDE 28 mmol/L (21-32); CREATININE 1.04 mg/dl (0.60-1.20); GLUCOSE 167 mg/dl (70-99); POTASSIUM 3.3 mmol/L (3.5-5.1); SODIUM 138 mmol/L (136-145)
[2017-06-07 06:40] LABS: HEMOGLOBIN A1C 6.4 % (4.5-5.6)
== END | disposition home or self-care (01) ==
LOC: C.LABPBG 14:18
DX: M25.561 Pain in right knee (principal)

== ENCOUNTER 2017-06-26 06:14 | Inpatient (IN) | payer OTHER ==
--- NOTE | 2017-06-11 13:46 | HISTORY & PHYSICAL EXAMINATION ---
DATE OF ADMISSION: 06/26/2017 CHIEF COMPLAINT: Right knee pain. HISTORY OF PRESENT ILLNESS: Yanna is a 67-year-old female with a multiple year history of right knee pain. The patient rates her pain at 8/10. She has pain with her daily activities. She has limited standing and walking tolerance. Pain is worse with weightbearing. The patient has had injections, physical therapy and NSAIDs over the years without relief. She has failed conservative treatment and is scheduled for right total knee with Dr. Sharp. PAST MEDICAL HISTORY: Asthma, anxiety, and a history of lymphoma in 2008. She denies heart disease, diabetes or DVT. PAST SURGICAL HISTORY: Splenectomy, left TKA, cholecystectomy, laparoscopy, bilateral knee arthroscopy, and tonsillectomy. SOCIAL HISTORY: The patient denies alcohol or tobacco use. She lives in a split level home. She is and retired. FAMILY HISTORY: Positive for DVT in her sister. MEDICATIONS: Wellbutrin 300 mg daily, Lexapro 20 mg daily, aspirin 81 mg daily, Pepcid 20 mg b.i.d., triamterene/HCTZ 37.5/25 mg daily, Mobic 15 mg daily, [place] thyroid and albuterol p.r.n. ALLERGIES: None. REVIEW OF SYSTEMS: See HPI. Ten other systems reviewed, all negative. PHYSICAL EXAMINATION: VITAL SIGNS: Height 5 feet 7 inches, weight 238 pounds, and BMI 37. GENERAL: This is a well-developed and well-nourished female, who is alert and oriented x3. Mood and affect are appropriate. HEENT: Normocephalic and atraumatic. Mucous membranes are moist and intact. NECK: Supple without lymphadenopathy. HEART: Regular rate and rhythm without murmurs, rubs or gallops. LUNGS: Clear to auscultation without wheezes or rhonchi. ABDOMEN: Soft and nontender. Bowel sounds are equal and active. EXTREMITIES: No ecchymosis, redness or warmth. Thigh and calf are soft and nontender. She has neutral alignment. Range of motion is from 3-115 degrees with no laxity. She has no effusion and no edema. She is neurovascularly intact. X-RAY EXAMINATION: AP and lateral views show joint space narrowing and osteophyte formation. IMPRESSION: Degenerative joint disease, right knee. PLAN: The patient will be admitted for a right total knee arthroplasty. We will plan on Xarelto for DVT prophylaxis as this is what she had with her previous TKA. The patient also has a TAPE ALLERGY and prefers Dermabond skin closure. She also had vancomycin preoperatively with her left side.
[2017-06-12 11:40] VITALS: Ht 171.4 cm; Wt 108.2 kg
[~2017-06-26] VITALS: Ht 171.4 cm; Wt 108.2 kg
[2017-06-26] VITALS (9 sets, daily range): BP systolic 95–114; BP diastolic 60–78; PULSE 66–80; TEMP 36.4–37; O2SAT 93–96
[~2017-06-26 06:14] MED LIST changes: -ACET-24 PO; +ACETAMINOPHEN 500 MG TAB PO SCH; -BACTRIM PO; +CEFAZOLIN 2000MG IV PUSH 15 ML IV SCH; +CEFD300C2 PO; +CeleBREX 200 MG CAP PO SCH; +DEXAMETHASONE 4 MG TAB PO SCH; +FAMOTIDINE 20 MG TAB PO SCH; +GABAPENTIN 300 MG CAP PO SCH; +LACTATED RINGER'S 1000ML 1,000 ML IV SCH; +LACTATED RINGER'S 1000ML 500 ML IV SCH; +MELO-83 PO; +METOCLOPRAMIDE HCL 10 MG TAB PO SCH; +ROPIVACAINE 5MG/ML 30 ML 150 MG, BUPIVACAINE 0.5% MPF INJ 30 ML, EpINEphrine HCL INJ 0.... INFIL SCH; -RXC5 PO; -ULT50X PO; +VANCOMYCIN 1GM/270ML NSS IV SCH; -VITAMIN D PO; +VNTHFA/IN INH; -XRL10 PO; -[UNRECOGNIZED DRUG - OTHER] PO; +[UNRECOGNIZED DRUG - REMARK] PO
[2017-06-26] MEDS ORDERED: ROPIVACAINE 0.5% 5 MG/ML 30 ML VIAL ONE (06:28)
[2017-06-26] MEDS ORDERED: BUPIVACAINE 0.5 % 5 MG/1 ML PF 10ML VIAL ONE (06:28)
[2017-06-26] MEDS: TRANEXAMIC ACID INJ 1,000 MG x 2 Bags IV SCH ×4 (06:30→07:49)
[2017-06-26] MEDS ORDERED: VANCOMYCIN 1GM/270ML NSS ONE (07:01)
[2017-06-26] MEDS ORDERED: BACITRACIN 50000 UNIT VIAL ONE (07:06)
[2017-06-26] MEDS ORDERED: POVIDONE-IODINE OP SOLN 30 ML BTL ONE (07:06)
[2017-06-26] MEDS ORDERED: ORTHO JOINT ANESTHETIC ONE (07:06)
[2017-06-26] MEDS ORDERED: ONDANSETRON INJ 2 MG/ML 2 ML VIAL ONE (07:18)
[2017-06-26] MEDS ORDERED: DEXAMETHASONE SOD INJ 4 MG/ML VIAL ONE (07:18)
[2017-06-26] MEDS ORDERED: MIDAZOLAM HCL 1 MG/ML 2ML VIAL ONE (07:18)
[2017-06-26] MEDS ORDERED: LIDOCAINE HCL 2% 2 ML VIAL (20MG/ML) ONE (07:18)
[2017-06-26] MEDS ORDERED: PROPOFOL IV EMULSION 10 MG/ML 20 ML VIAL IV ONE (07:18)
[2017-06-26] MEDS ORDERED: FENTANYL CITRATE INJ 50 MCG/1 ML 2 ML VIAL ONE (07:18)
[2017-06-26] MEDS ORDERED: ATROPINE SULFATE 0.1 MG/ML 5ML SYR IV PRN (07:30)
[2017-06-26] MEDS ORDERED: HYDROmorphone INJ 2 MG/ML SYR/VIAL IV PRN (07:30)
[2017-06-26] MEDS ORDERED: EpHEDrine SULFATE INJ 50 MG/ML AMP IV PRN (07:30)
[2017-06-26] MEDS ORDERED: NURSING VERBAL MED ORDER ONE ×2 (07:30)
[2017-06-26] MEDS ORDERED: PHENYLEPHRINE 100MCG/ML 5ML SYR IV PRN (07:30)
[2017-06-26] MEDS ORDERED: ONDANSETRON INJ 2 MG/ML 2 ML VIAL IV PRN (07:30)
--- NOTE | 2017-06-26 09:03 | [facility] Post Operative Brief Note ---
Immediate Operative Summary Operative Date Jun 26, 2017. Pre-Operative Diagnosis Degenerative Joint Disease Right Knee Post-Operative Diagnosis Degenerative Joint Disease Right Knee Procedure(s) Performed Right Total Knee Arthroplasty Surgeon Dr Sharp Technical Business Systems Analyst Surgeon(s) Renzo Augustine PA-C Estimated Blood Loss 10cc Findings Consistent with Post-Op Diagnosis Specimens As Per Surgeon A. Right Knee Bone and Tissue Anesthesia Type MAC Spinal Regional Complication(s) none Disposition Accompanied Pt To Recover: no Disposition: Recovery Room / PACU
[2017-06-26] MEDS ORDERED: TRAMADOL HCL 50 MG TAB PO PRN (10:00)
[2017-06-26] MEDS ORDERED: ALBUTEROL HFA 8 GM INHALER INH PRN (10:00)
[2017-06-26] MEDS ORDERED: ALUMINUM/MAGNESIUM/SIMETH (MAALOX MAX) 30 ML UDC PO PRN (10:00)
[2017-06-26] MEDS ORDERED: VANCOMYCIN CONSULT ACTIVE PRN (10:00)
[2017-06-26] MEDS ORDERED: MoRPHine SULFATE 2 MG/ML CARP IV PRN (10:00)
[2017-06-26] MEDS ORDERED: MAGNESIUM HYDROXIDE SUSP 30 ML UDC PO PRN (10:00)
--- NOTE | 2017-06-26 10:01 | OPERATIVE REPORT ---
DATE OF OPERATION: 06/26/2017 PREOPERATIVE DIAGNOSIS: Osteoarthritis, right knee. POSTOPERATIVE DIAGNOSIS: Osteoarthritis, right knee. PROCEDURE: Right total knee arthroplasty. SURGEON: Dr. Yassine Sharp. ORANGE PICKING SUPERVISOR: SAURABH Ng ANESTHESIA: Spinal. COMPLICATIONS: None. IMPLANTS USED: Femoral size 5, tibia size 4, tibial poly 11, patella size 36. OPERATION AND FINDINGS: Following induction of spinal anesthesia, the patient's right leg was prepped and draped in the usual sterile manner. Limb was exsanguinated with an Esmarch bandage and tourniquet was inflated to 350 mmHg. A longitudinal incision was made anteriorly. Subcutaneous tissue was sharply dissected. Electrocautery was used for hemostasis. Prepatellar bursa was incised and median parapatellar incision was performed. Patella was everted and the knee was flexed. Fat pad was removed to aid in visualization and the anterior and posterior cruciate ligaments were removed. The medial face of the tibia was cleared of soft tissue first with a Bovie and a Simeon elevator. This tissue was retracted posteriorly using a blunt Hohmann. A Velasquez retractor was used to expose the synovium above on the anterior aspect of the femur and this was removed down to bone. The PSI guide was placed on the distal femur and two pins were placed anteriorly and kept in position and two additional pins were placed distally and removed. The distal femoral cutting block was placed in position and the distal femoral cut was used in the +0 setting. Next, the cutting block was removed and the femoral size 5 block was placed in the distal end of the femur. Care was taken to ensure appropriate external rotation and feeler gauge was used to ensure no notching would occur. The femoral block was centered on the distal femur and in the medial and lateral direction and was fixed using two bone screws. The gold pins were then removed. The oscillating saw was used to create the bone cuts and the distal femoral cutting block was removed and the reciprocating saw was used to further trim the femoral cuts as well as a deep in the area for the trochlear groove. Next, posterior condyle remnants were removed. Following this, a meniscal clamp and knife were utilized to remove the anterior portion of both medial and lateral meniscus. The proximal tibia PSI guide was placed into position and the proximal tibial cutting guide was screwed into position. The extra medullary alignment guide was utilized to ensure appropriate alignment. The proximal tibia was cut and the proximal tibial cutting block was removed and this bone fragment was removed. The appropriate guide was used to perform the notch cut on the distal femur and a lamina soda column operator and a cochlear knife were utilized to finish both medial and lateral meniscectomies to remove any remnants of the posterior or anterior cruciate ligaments. Following this, the distal femoral component was impacted into position and blunt Rafael was used to sublux the tibia anteriorly. The proximal tibia was sized and a size 4 tibial tray was chosen as the size to be used. This was put into position and appropriate external rotation and a double check with extramedullary alignment guide was performed. The canal for the tibial stem was prepared first with a 17-mm drill and then the punch and a mallet and the trial tibial poly was placed. A size 11 was chosen the size to be used. It was brought to extension and the patella was prepared with the patellar reamer. A size 36 component was chosen the size to be used. The trial component was placed and knee was taken through a full range of motion and there was found to be no lateral subluxation of the tibia. No lateral release was required. The trials were all removed. The final components were obtained and assembled. Cement was mixed. The knee was thoroughly irrigated and the ortho mix was injected about the knee joint. The final components were cemented into position. After thoroughly suctioning and drying the bone ends, all excess cement was removed. The knee was held in extension while the cement hardened. The wound was irrigated and closed over a Hemovac drain. A #1 Vicryl was used to close the extensor mechanism. Subcutaneous tissues closed using 0 Dexon. Skin was closed with beverley. Sterile dressing of Adaptic, 4 x 4's, sterile Webril, and Jewel was applied. The patient tolerated the procedure well. Due to the complex nature of the procedure, the entire surgery was performed with the operational assistance of SAURABH Ng. The assistant professor nurse education, under direct supervision, was involved in the actual performance of all aspects of the surgical procedure including hemostasis, tissue retraction and incision, instrument management, patient positioning, and wound closure. I attest to the content of the Intraoperative Record and any orders documented therein. Any exception s are noted below.
--- NOTE | 2017-06-26 10:12 | DIAGNOSTIC IMAGING REPORT ---
R KNEE 1 OR 2 VIEWS ROUTINE CLINICAL HISTORY: Postoperative evaluation. COMPARISON: Right knee radiographs December 03, 2016. FINDINGS: Alignment of the total right knee arthroplasty is anatomic. There is no fracture or unexpected radiopaque foreign body. Drains are in place. There may be a screw tract within the medial metadiaphysis of the right tibia. IMPRESSION: Expected findings following total right knee arthroplasty. Electronically signed by: Randy Reyes M.D. 06/26/2017 10:11 AM Dictated Date/Time: 06/26/2017 10:10 AM
--- NOTE | 2017-06-26 12:26 | Anesthesiology Progress Note ---
Anesthesia Post Op Note Date & Time Jun 26, 2017 at 12:26 Vital Signs Pain Intensity: 0.0 Vital Signs Past 12 Hours Date Time Temp Pulse Resp B/P (MAP) Pulse Ox O2 Delivery O2 Flow Rate FiO2 06/26/17 11:40 66 16 110/72 (85) 96 Nasal Cannula 2.0 06/26/17 11:10 69 16 110/73 (85) 96 Nasal Cannula 2.0 06/26/17 10:40 36.9 70 16 109/71 (84) 95 Nasal Cannula 2.0 06/26/17 10:40 95 Nasal Cannula 2.0 06/26/17 10:40 Nasal Cannula 2.0 06/26/17 10:20 36.1 70 16 114/64 96 Nasal Cannula 3 06/26/17 10:10 68 16 113/64 96 Nasal Cannula 3 06/26/17 10:00 73 16 113/63 95 Oxymask 5 06/26/17 09:51 36.0 77 16 97/65 95 Oxymask 10 06/26/17 06:41 37 80 18 114/72 94 Room Air Notes Mental Status: alert / awake / arousable, participated in evaluation Pt Amnestic to Procedure: Yes Nausea / Vomiting: adequately controlled Pain: adequately controlled Airway Patency, RR, SpO2: stable & adequate BP & HR: stable & adequate Hydration State: stable & adequate Anesthetic Complications: no major complications apparent
[2017-06-26] MEDS: ESCITALOPRAM OXALATE 20 MG TAB PO SCH ×2 (12:30→13:01)
[2017-06-26] MEDS ORDERED: TRIAMTERENE/HCTZ 37.5/25MG CAP PO SCH (12:30)
[2017-06-26] MEDS ORDERED: FAMOTIDINE 20 MG TAB PO SCH (12:30)
[2017-06-26] MEDS: D5W AND 1/2NSS + 20MEQ KCL 1,000 ML IV SCH ×2 (12:59→21:57)
[2017-06-26] MEDS: BuPROPion XL 300 MG TABCR PO SCH ×2 (13:02→13:10)
[2017-06-26] MEDS: FERROUS GLUCONATE 324 MG TAB PO SCH ×2 (13:03→17:57)
[2017-06-26] MEDS: ACETAMINOPHEN 500 MG TAB PO SCH ×2 (13:59→21:09)
[2017-06-26] MEDS: ONDANSETRON INJ 2 MG/ML 2 ML VIAL IV PRN (16:21)
[2017-06-26] MEDS ORDERED: VANCOMYCIN INJ 1,500 MG in SODIUM CHLORIDE 0.9% 500ML 500 ML IV SCH (19:00)
[2017-06-26] MEDS ORDERED: VANCOMYCIN INJ 1,600 MG in SODIUM CHLORIDE 0.9% 500ML 500 ML IV SCH (19:00)
[2017-06-26] MEDS: SENNA 8.6 MG TAB PO SCH (21:07)
[2017-06-26] MEDS: DOCUSATE SODIUM 100 MG CAP PO SCH (21:08)
[2017-06-26] MEDS: CeleBREX 200 MG CAP PO SCH (21:08)
[2017-06-26] MEDS: OXYCODONE HCL IR 5 MG TAB (IMMEDIATE RELEASE) PO PRN (21:19)
[2017-06-27] VITALS (7 sets, daily range): BP systolic 99–132; BP diastolic 59–78; PULSE 66–82; TEMP 36.4–37; O2SAT 91–98
[2017-06-27] MEDS: OXYCODONE HCL IR 5 MG TAB (IMMEDIATE RELEASE) PO PRN ×4 (01:31→19:16)
[2017-06-27] MEDS: ACETAMINOPHEN 500 MG TAB PO SCH ×3 (05:30→21:48)
[2017-06-27 06:13] LABS: HEMATOCRIT 33.3 % (37-47); HEMOGLOBIN 11.1 g/dL (12.0-16.0); MEAN CELL VOLUME 88.1 fL (80-100); MEAN CORPUSCULAR HEMOGLOBIN 29.4 pg (25-34); MEAN CORPUSCULAR HGB CONC 33.3 g/dl (32-36); MEAN PLATELET VOLUME 9.6 fL (7.4-10.4); PLATELET COUNT 371 K/uL (130-400); RED CELL DISTRIBUTION WIDTH CV 15.2 % (11.5-14.5); RED CELL DISTRIBUTION WIDTH SD 48.9 fL (36.4-46.3); WHITE BLOOD COUNT 25.46 K/uL (4.8-10.8)
[2017-06-27 06:45] LABS: CALCIUM 8.8 mg/dl (8.5-10.1); CREATININE 1.11 mg/dl (0.60-1.20); POTASSIUM 4.3 mmol/L (3.5-5.1)
--- NOTE | 2017-06-27 07:53 | Orthopedic Progress Note ---
Orthopedic Progress Note Date of Service Jun 27, 2017. Subjective Post OP Day: 1 Reports: feeling well Objective N/V intact (Footdrop noted), dressing C/D/I (Hemovac in place) Date Time Temp Pulse Resp B/P (MAP) Pulse Ox O2 Delivery O2 Flow Rate FiO2 06/27/17 07:44 94 Room Air 06/27/17 07:42 36.5 66 19 94 Room Air 06/27/17 07:01 36.6 70 19 99/61 (74) 93 Room Air 06/27/17 03:36 36.4 72 18 107/68 (81) 96 Room Air 06/27/17 00:00 Room Air 06/26/17 22:51 36.8 72 16 111/66 (81) 93 Room Air 06/26/17 19:59 36.8 79 16 107/63 (78) 93 Room Air 06/26/17 15:21 36.4 76 18 96/61 (73) 95 Room Air 06/26/17 15:15 Room Air 06/26/17 13:35 74 16 95/60 (72) 96 Nasal Cannula 2.0 06/26/17 12:34 67 16 114/78 (90) 96 2.0 06/26/17 11:40 66 16 110/72 (85) 96 Nasal Cannula 2.0 06/26/17 11:10 69 16 110/73 (85) 96 Nasal Cannula 2.0 06/26/17 10:40 36.9 70 16 109/71 (84) 95 Nasal Cannula 2.0 06/26/17 10:40 95 Nasal Cannula 2.0 06/26/17 10:40 Nasal Cannula 2.0 06/26/17 10:20 36.1 70 16 114/64 96 Nasal Cannula 3 06/26/17 10:10 68 16 113/64 96 Nasal Cannula 3 06/26/17 10:00 73 16 113/63 95 Oxymask 5 06/26/17 09:51 36.0 77 16 97/65 95 Oxymask 10 Laboratory Results 24 Hours: Test 06/27/17 06:00 Hematocrit 33.3 % Hemoglobin 11.1 g/dL Assessment & Plan Assessment: 67 yo female stable POD #1 s/p right TKA, footdrop noted Plan: 1. Med management 2. DVT prophylaxis- Xarelto, SCDs 3. PT/OT 4. D/C planning- home w/ HH
--- NOTE | 2017-06-27 07:55 | Discharge Instructions ---
Discharge Instructions Date of Service Jun 27, 2017. Admission Reason for Admission: Right Knee Osteoarthritis Discharge Discharge Diagnosis / Problem: Right knee arthritis Discharge Goals Goal(s): Decrease discomfort, Improve function Activity Recommendations Activity Limitations: as noted below Weightbearing Status: Right weightbearing (as tolerated) . Instructions / Follow-Up Instructions / Follow-Up ACTIVITY RECOMMENDATIONS: SELF CARE INSTRUCTIONS AFTER TOTAL KNEE REPLACEMENT A. You may need to continue a physical therapy program after discharge from the hospital. There are several options available to you. Your doctor will assist you in selecting the best one for you. 1. An out-patient facility 2 to 3 times a week for therapy or home therapy. 2. Continue working on all exercises taught to you in the hospital. Your goals should be to increase bending of your knee to 90 degrees and beyond and to fully straighten your knee. B. You may progress at your own pace from walking with a walker or crutches to a cane; then to no assistive devices. C. Make walking a part of your daily routine. Be up as much as comfortable with rest periods throughout the day. Rest with leg elevation is very important. Use the ice wrap frequently for the first 3-4 weeks. D. There are no restrictions on activities. You may ride in a car, shop, participate in company pilot and all social activities. E. Wear the long elastic stockings (ESTER hose) 20 hours a day for 2 weeks after surgery. They can be removed several times a day for laundering and for a bath. F. You may shower, no tub baths until cleared by your doctor. SPECIAL CARE INSTRUCTIONS: VERY IMPORTANT TO READ AND REVIEW A. There are a few signs you need to watch for after you are home. Call [facility] if you notice any of the followin. Increased severe knee pain. Some pain is expected especially when you exercise. 2. Increased swelling in your leg or knee; pain or swelling of the calf muscle in either lower leg. 3. Any fluid drainage from the incision. 4. Shortness of breath or chest pain. B. Please call [facility] at if you have any concerns or questions about your operation or recovery. The doctor or his nurse will return your call promptly. C. You must take antibiotics before dental work, bladder, bowel or other surgery. Your doctor will provide you with a permanent care to carry describing this precaution. IMPORTANT: * REMEMBER TO TAKE ASPIRIN, 81 MG, TWICE DAILY FOR 4 WEEKS UNLESS OTHERWISE DIRECTED. THIS IS YOUR BLOOD THINNER. * HIGH RISK PATIENTS MAY BE PRESCRIBED A STRONGER BLOOD THINNER. THIS WILL BE PROVIDED AT DISCHARGE. * CALL IF INCREASED PAIN, REDNESS, DRAINAGE OR FEVER GREATER THAT 101. * WEAR ESTER HOSE 20 HOURS PER DAY FOR 2 WEEKS. Silverlon- This is a large adhesive bandage that contains silver ions. This helps your incision heal by fighting off bacteria and protecting it from the outside environment. You are permitted to shower with this dressing. This will remain on your incision for 7 days and then should be removed. Some visible blood or drainage through the dressing window is normal. If there is significant drainage or leaking noted before the 7 days notify your doctor's office immediately. Once removed, keep incision clean and dry. If there is any drainage or redness noted, please call your surgeon. Maintain zipline closure when removing Silverlon FOLLOW UP VISIT: If appointment is not already scheduled: Please call [facility] to make a follow-up appointment for 2 weeks after your surgery at . Current Hospital Diet Patient's current hospital diet: Regular Diet Discharge Diet Recommended Diet: Regular Diet Procedures Procedures Performed: Right Total Knee Arthroplasty Pending Studies Studies pending at discharge: no Laboratory Results Hemoglobin A1c Test 06/06/17 14:23 Range/Units Estimated Average Glucose 137 mg/dl Hemoglobin A1c 6.4 H 4.5-5.6 % Medical Emergencies . Who to Call and When: Medical Emergencies: If at any time you feel your situation is an emergency, please call 911 immediately. . Non-Emergent Contact Non-Emergency issues call your: Surgeon Call Non-Emergent contact if: temperature is above 101.5, your pain is not controlled, wound has increased drainage, wound has increased redness . "Provider Documentation" section prepared by Jose Oleary PA-C. . VTE Core Measure Inpt VTE Proph given/why not?: Other Anticoagulation (Xarelto), T.E.D. Stockings, SCD's [place] Drug Monitoring Program Search Results: patient reviewed within database, no issues identified
[2017-06-27] MEDS: ARMOUR THYROID 30 MG TAB PO SCH (08:36)
[2017-06-27] MEDS: FERROUS GLUCONATE 324 MG TAB PO SCH ×3 (09:07→19:15)
[2017-06-27] MEDS: CeleBREX 200 MG CAP PO SCH ×2 (09:08→21:48)
[2017-06-27] MEDS: DOCUSATE SODIUM 100 MG CAP PO SCH ×2 (09:09→21:48)
[2017-06-27] MEDS: MULTIVITAMIN TAB PO SCH (09:10)
[2017-06-27] MEDS: RIVAROXABAN 10 MG TAB PO SCH (09:10)
[2017-06-27] MEDS ORDERED: NURSING VERBAL MED ORDER ONE (09:15)
[2017-06-27] MEDS: TRIAMTERENE/HCTZ 37.5/25MG CAP PO SCH (09:47)
[2017-06-27] MEDS: ESCITALOPRAM OXALATE 20 MG TAB PO SCH (09:48)
[2017-06-27] MEDS: BuPROPion XL 300 MG TABCR PO SCH (09:49)
[2017-06-27] MEDS: FAMOTIDINE 20 MG TAB PO SCH (10:00)
[2017-06-27] MEDS: ONDANSETRON INJ 2 MG/ML 2 ML VIAL IV PRN (21:39)
[2017-06-27] MEDS: SENNA 8.6 MG TAB PO SCH (21:48)
[2017-06-28 00:10] VITALS: O2SAT 94
[2017-06-28] MEDS: OXYCODONE HCL IR 5 MG TAB (IMMEDIATE RELEASE) PO PRN ×4 (01:20→13:49)
[2017-06-28] MEDS: ACETAMINOPHEN 500 MG TAB PO SCH ×2 (06:15→13:49)
--- NOTE | 2017-06-28 06:32 | Orthopedic Progress Note ---
Orthopedic Progress Note Date of Service Jun 28, 2017. Subjective Post OP Day: 2 Reports: feeling well, pain controlled w PO medications, Denies: complaints, chest pain, SOB, nausea / vomiting, light headedness, calf pain Additional Notes: foot drop resolved Objective calves soft nontender, N/V intact, capillary refill less than 2 sec., incision C /D/I, A&O x3, toes mobile Date Time Temp Pulse Resp B/P (MAP) Pulse Ox O2 Delivery O2 Flow Rate FiO2 06/28/17 00:10 94 Room Air 06/27/17 23:20 36.7 82 16 118/68 (85) 98 Room Air 06/27/17 15:30 Room Air 06/27/17 14:49 37.0 80 16 107/59 (75) 94 Room Air 06/27/17 11:46 36.5 68 20 132/78 (96) 91 Room Air 06/27/17 07:44 94 Room Air 06/27/17 07:42 36.5 66 19 106/66 (79) 94 Room Air 06/27/17 07:30 Room Air 06/27/17 07:01 36.6 70 19 99/61 (74) 93 Room Air Assessment & Plan Assessment: 67 yo female stable POD #2 s/p right TKA, footdrop resolved Plan: 1. Med management 2. DVT prophylaxis- Miguel Jerome 3. PT/OT 4. D/C planning- home w/ HH Discharge Planning Discharge Planning: home with home health DVT Prophylaxis: TEDs, SCDs, Xarelto Therapy: Physical Therapy
[2017-06-28] MEDS ORDERED: RXC5 PO (06:34)
[2017-06-28] MEDS ORDERED: XRL10 PO (06:34)
[2017-06-28] MEDS ORDERED: CLC100 PO (06:34)
[2017-06-28] MEDS ORDERED: ONDA8TAB6 PO (06:34)
[2017-06-28] MEDS ORDERED: ACET-24 PO (06:34)
[2017-06-28] MEDS ORDERED: CLB200 PO (06:34)
[2017-06-28 07:31] VITALS: BP 101/65; PULSE 74; TEMP 36.8; O2SAT 91
[2017-06-28] MEDS: CeleBREX 200 MG CAP PO SCH (08:40)
[2017-06-28] MEDS: BuPROPion XL 300 MG TABCR PO SCH (08:40)
[2017-06-28] MEDS: ESCITALOPRAM OXALATE 20 MG TAB PO SCH (08:40)
[2017-06-28] MEDS: FERROUS GLUCONATE 324 MG TAB PO SCH ×2 (08:40→12:24)
[2017-06-28] MEDS: MULTIVITAMIN TAB PO SCH (08:40)
[2017-06-28] MEDS: FAMOTIDINE 20 MG TAB PO SCH (08:41)
[2017-06-28] MEDS: DOCUSATE SODIUM 100 MG CAP PO SCH (08:41)
[2017-06-28] MEDS: RIVAROXABAN 10 MG TAB PO SCH (08:41)
[2017-06-28] MEDS: TRIAMTERENE/HCTZ 37.5/25MG CAP PO SCH (08:42)
[2017-06-28] MEDS: ARMOUR THYROID 30 MG TAB PO SCH (09:54)
[2017-06-28 12:11] VITALS: BP 101/65; PULSE 74; TEMP 36.8; O2SAT 91
== END 2017-06-28 14:13 | disposition home health service (06) | DRG 470 ==
LOC: C.ACU 06:14 → C.3E 06:41 → ENRESERV 10:06
PROC: 0SRC0J9 Replacement of Right Knee Joint with Synthetic Substitute, Cemented, Open Approach (ICD-10-PCS; principal; 2017-06-26 08:15)
DX: M17.11 Unilateral primary osteoarthritis, right knee (principal); J45.909 Unspecified asthma, uncomplicated; F41.9 Anxiety disorder, unspecified; Z79.899 Other long term (current) drug therapy; Z79.82 Long term (current) use of aspirin; Z96.652 Presence of left artificial knee joint; Z85.72 Personal history of non-Hodgkin lymphomas; Z91.048 Other nonmedicinal substance allergy status; Z82.49 Family history of ischemic heart disease and other diseases of the circulatory system

== ENCOUNTER 2018-05-16 23:22 | Inpatient (IN) ==
[2018-05-17 00:08] LABS: Basophils # (auto) 0.04 K/uL (0-0.2); Basophils % (auto) 0.3 %; Eosinophils # (auto) 0.38 K/uL (0-0.5); Eosinophils % (auto) 2.7 %; Hematocrit (blood only) 41.5 % (37-47); Hemoglobin 13.7 g/dL (12.0-16.0); Immature Granulocytes # (auto) 0.04 K/uL (0.00-0.02); Immature Granulocytes % (auto) 0.3 %; Lymphocytes # (auto) 3.33 K/uL (1.2-3.4); Lymphocytes % (auto) 23.9 %; Mean Corpuscular Volume 89.6 fL (80-100); Mean Platelet Volume 9.9 fL (7.4-10.4); Monocytes # (auto) 0.94 K/uL (0.11-0.59); Monocytes % (auto) 6.8 %; Neutrophils # (auto) 9.18 K/uL (1.4-6.5); Platelet Count 502 K/uL (130-400); RDW Coefficient of Variation 15.3 % (11.5-14.5); Red Blood Count 4.63 M/uL (4.2-5.4); White Blood Count 13.91 K/uL (4.8-10.8)
[2018-05-17 00:15] LABS: INR 1.1 (0.9-1.1); Prothrombin Time 10.7 Seconds (9.0-12.0)
[2018-05-17 00:25] LABS: BUN Creatinine Ratio 28.6 (10-20); C Reactive Protein 1.56 mg/dl (0-0.29); Calcium 9.5 mg/dl (8.5-10.1); Creatinine Clr Calc Pharmacy 57.6 ml/min; Est GFR (African American) 55.7; Potassium 3.7 mmol/L (3.5-5.1)
[2018-05-17] MEDS ORDERED: cefTRIAXone SODIUM 1,000 MG/50 ML BAG IV STA (01:02)
[2018-05-17] MEDS ORDERED: VANCOMYCIN CONSULT ACTIVE PRN ×2 (01:02→02:18)
[2018-05-17] MEDS ORDERED: VANCOMYCIN HCL 2,000 MG in SODIUM CHLORIDE 0.9% 500 ML IV ONE (01:02)
--- NOTE | 2018-05-17 01:38 | History & Physical Report ---
Date of Service May 17, 2018 Assessment & Plan (1) Cellulitis of right knee: 67 y/o F Hx HTN, GERD, anxiety, hypothyroidism, history of lymphoma and splenectomy, history of R TKA 05/2017. Presents with pain and erythema overlying her R knee. This began as a small round area earlier in the day and has quickly expanded above and below the knee. Imaging in the ER reveals a small joint effusion. She is able to bend her knee and clinically does not appear to have a septic joint. She does not report any fevers. She does note that the knee becomes painful if she ambulates. Initial labs demonstrate leukocytosis, an elevated CRP and mild thrombocytosis. 1) Cellulitis R knee - concern for evolving joint infection. Considering TKA/ hardware, asplenic status, rapid spread of erythema over R knee. joint effusion. Pt admitted for IV antibiotics, placed on Ceftriaxone and Vanc, area delineated. We will keep her NPO until AM evaluation by orthopedics. IVF and analgesics provided. 2) HTN - she takes a diuretic only which is held pending AM reassessment. 3) Hypothyroidism - takes Gower Thyroid 30Q 4) GERD - cont Famotidine Full code - SCDs Total time for this admit including review of labs meds, imaging, records - discussion with pt, daughter and ER attending - 37 min History of Present Illness Primary Care Provider: Denita Shepard 67 y/o F Hx HTN, GERD, anxiety, hypothyroidism, history of lymphoma and splenectomy, history of R TKA 05/2017. Presents with pain and erythema overlying her R knee. This began as a small round area earlier in the day and has quickly expanded above and below the knee. Imaging in the ER reveals a small joint effusion. She is able to bend her knee and clinically does not appear to have a septic joint. She does not report any fevers. She does note that the knee becomes painful if she ambulates. Initial labs demonstrate leukocytosis, an elevated CRP and mild thrombocytosis. PMH: 1) Asthma 2) Anxiety 3) Lymphoma 2008 - remission was achieved after 6 cycles of CHOP 4) Asplenic 5) HTN 6) GERD 7) Hypothyroidism Surgical: 1) Splenectomy 2) Cholecystectomy 3) BL knee arthroscopy 4) R TKA 05/2017 Social: No history of drinking or smoking Family: Both parents with history of CAD - mother had an ascending aortic aneurysm Allergies Allergy/AdvReac Type Severity Reaction Status Date / Time amoxicillin Allergy Mild itching - Verified 05/17/18 00:24 HAS TAKEN SINCE WITHOUT TROUBLE tramadol AdvReac Intermediate contraindicated Verified 05/17/18 00:24 d/t taking wellbutrin per pt Home Medications Home Medications Medication Instructions Recorded Confirmed Type aspirin [Aspirin Low Dose] 81 mg PO DAILY 05/17/18 05/17/18 History bupropion HCl [Wellbutrin XL] 300 mg PO QAM 05/17/18 05/17/18 History docusate sodium 100 mg PO DAILY 05/17/18 05/17/18 History escitalopram oxalate [Lexapro] 20 mg PO DAILY 05/17/18 05/17/18 History famotidine [Pepcid] 20 mg PO DAILY 05/17/18 05/17/18 History meloxicam 15 mg PO DAILY 05/17/18 05/17/18 History triamterene-hydrochlorothiazid 1 tab PO DAILY 05/17/18 05/17/18 History Past Med/Surg History Social History Feels Safe at Home: Yes Smoking Status: Never smoker Review of Systems General: Denies fevers, night sweats, weight loss, weight gain ENT: Denies throat pain, nasal congestion Eyes: Denies acute visual impairment, eye pain Cardiovascular: Denies CP, palpitations, PND, orthopnea Respiratory: Denies SOB, productive cough, wheezing GI: Denies nausea, vomiting, diarrhea, constipation, GI bleeding : Denies dysuria, hesitancy, frequency, hematuria Neuro: Denies headache, lightheadedness, syncope, unilateral weakness, acute loss of balance, memory loss Endocrine: Denies polydypsia, polyuria Heme: Denies unexplained bruising Skin: Erythema overlying R knee Musculoskeletal: Pain in R knee as per HPI Physical Exam 2 Vital Signs (Past 24 Hours): Last Vital Signs Temp 37.1 C 05/16/18 23:31 Pulse 85 05/17/18 00:48 Resp 18 05/17/18 00:48 BP 127/72 05/17/18 00:48 Pulse Ox 96 05/17/18 00:48 Physical Exam: General: AAO x 3, no distress ENT: No erythema or exudates, no thrush Eyes: MAGALIS, EOMI Head and neck: Normocephalic, atraumatic, No JVD, neck is supple. Chest/heart: Nontender, S1,2, RRR, no murmurs, no gallops Lungs: CTAB, no wheezing or crackles Abdomen: Nontender, nondistended, BS+ Neuro: AAO x 3, speech is clear, no unilateral weakness or loss of sensation, coordination intact Musculoskeletal: Knee appear inflamed on R - maintains full ROM presently Skin: No acute rashes or ulcers Extremities: No clubbing, cyanosis, edema
[2018-05-17] MEDS ORDERED: ZOLPIDEM TARTRATE 5 MG TAB PO PRN (02:18)
[2018-05-17] MEDS ORDERED: ONDANSETRON INJ 2 MG/ML 2 ML VIAL IV PRN (02:18)
[2018-05-17] MEDS ORDERED: MoRPHine SULFATE 4 MG/ML 1 ML CARP\\VIAL IV PRN (02:18)
[2018-05-17] MEDS ORDERED: ACETAMINOPHEN 325 MG TAB PO PRN (02:18)
[2018-05-17] MEDS ORDERED: ALUMINUM/MAGNESIUM SUSP 30 ML UDC PO PRN (02:18)
[2018-05-17] MEDS ORDERED: MAGNESIUM HYDROXIDE SUSP 30 ML UDC PO PRN (02:18)
[2018-05-17] MEDS ORDERED: VANCOMYCIN HCL 1,000 MG in SODIUM CHLORIDE 0.9% 250 ML IV SCH (02:18)
[2018-05-17] MEDS ORDERED: POLYETHYLENE (MIRALAX) 17 GM PACK PO PRN (02:18)
[2018-05-17] MEDS: D5W AND LACTATED RINGERS 1,000 ML IV SCH ×2 (03:18→16:22)
--- NOTE | 2018-05-17 06:03 | Emergency Department Note ---
Entered by Vinicius Thorne acting as a scribe for ED Provider Note Name: Yanna Martinez Age: 67 Arrives Via: Private vehicle Informant: Patient CC: Right knee bruising HPI: The patient is a 67 year old female who presents to the ED with a family member via private vehicle due to complaints of worsening right knee bruising that began earlier today. Patient states today her knee started off red and then has increased in bruising since. Patient states she has had discomfort and pain in her right knee for the past couple of months. She adds that her pain is worsened when she walks and states she was walking around at the mall for an extended period of time today. Patient adds that she has taken ibuprofen for her symptoms with minimal relief. Patient states she had a right knee replacement done about a year ago by Dr. Sharp and denies any complications with the surgery. 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 Patient states that she had a sinus infection recently. She adds that she takes a baby aspirin daily but denies using any other blood thinners. She also denies any recent antibiotic use and a history of bleeding issues, liver problems, and diabetes. Patient denies any recent falls or trauma to her right knee area. ROS: See above HPI for pertinent positives & negatives. A total of 6 systems reviewed and were otherwise negative. Past Medical History: Lymphoma Past Surgical History: Right knee DJD Family History: No pertinent family history Social History: Lives with family Home Medications: None Allergies None Physical: Vitals: BP = 127/72 P = 85 Resp = 18 Temp = 98.8 O2 Sat = 96 Delivery = Room Air Exam: GENERAL: Patient is well appearing and in no acute distress. EYES: No scleral icterus, unremarkable pupils. ENT: Mucous membranes moist, no nasal congestion. NECK: No masses appreciated, no meningismus, trachea is midline. RIGHT KNEE: Moderate diffusion, minimal pain with range of motion, mid flexion click of right knee, moderate anterior bruising of right knee, distal pulses intact, no calf swelling, no tenderness to palpation. EXTREMITIES: Normal motion all extremities, no cyanosis, no edema. NEUROLOGIC: Alert and oriented, no acute motor or sensory deficits, no focal weakness, cranial nerves grossly intact. SKIN: No rash, no jaundice, no diaphoresis. ED Course: Prior Medical Record, Triage/Nursing Notes, Medications, Allergies reviewed by Me Vital Signs: reviewed and remarkable for wnl Labs: Reviewed and remarkable for Mild WBC, ESR, and CRP elevations LA normal. Interventions: Saline Lock, Rocephin 1 g IV, Vanco 20mg/kg IV Imaging: X ray results are stated below per my interpretation: Right Knee: 3 view: Mild joint effusion. Abnormal tracking patella. Questionable hardware loose medial lower prosthesis Consults: 0102: I reviewed the patient's case with Dr. Cortes of [facility]. He agrees with the concerning findings on the patient's x-ray. He agrees with bringing the patient into medicine for further evaluation of her worsening cellulitis. 0122: I reviewed the patient's case with Dr. Prado. He will evaluate the patient for further management. Times: 2333: Past medical records reviewed. The patient was evaluated in room C12B, and a complete history and physical examination were performed. 0040: I reevaluated the patient. Patient's bruise is now more red and spreading up the right lateral thigh with minimal pain. 0108: [facility] was paged for the patient. 0133: Upon reevaluation, the patient will be further evaluated. I updated the patient on her findings and treatment plan. Patient is agreeable to the treatment plan. Patient will be assessed for further evaluation. Blood pressure: Normal. No Referral necessary Disposition: Hospitalist admission. Prescriptions: none. Differentials: Fracture, Dislocation, Cellulitis, Septic Joint, Ligamentous Injury, Effusion, DVT, amongst other pathologies entertained. Medical Decision Making: Pleasant 67 yr old female without spleen who had right knee replacement 1 year ago. Today with small bruise like spot upper portion of anterior incision of knee which has rapidly enlarged (including while here) over last few hours. It is purplish with definitive red hue. It is expanding upwards as well as down. It is warm to touch. I suspect that this is a cellulitis. She has no ROM of the right knee and while there does seem to be an effusion, there at this time, is no evidence of septic joint. She is not septic currently. However, given her cellulitis, effusion, previous replacement, and asplenia, I think monitoring in hospital and letting Ortho eval very much reasonable. Hospitalist will bring in and Dr Cortes aware of consult. She is stable currently. Given IV rocephin and IV Vanco for coverage. Impression: Right knee cellulitis Asplenia Jose M Wilson MD The scribe's documentation has been prepared under my direction and personally reviewed by me in its entirety. I confirm that the note above accurately reflects all work, treatment, procedures, and medical decision making performed by me. Impression & Plan Cellulitis of right knee, Asplenia Past Med/Surg History Medical History Anxiety Arthritis Asthma Depression GERD (gastroesophageal reflux disease) Hypothyroidism Lymphoma Surgical History History of section History of cholecystectomy History of splenectomy History of total knee replacement Social History Current Living Situation: Spouse and Family Other Information That Helps Us Care for You: No Feels Safe at Home: Yes Safety Concerns: Feels Safe At This Time Smoking Status: Never smoker Do You Dip or Chew Tobacco: No Second Hand Exposure: No Tobacco Cessation Education Requested by Patient: No Hx Alcohol Use: No Hx Substance Use: No Beliefs That Will Affect Care: None Communication Ability: Effective Guest Relations Manager Required: No Results & Data Vital Signs Vital Signs - 24 hr 05/16/18 23:31 05/17/18 00:48 05/17/18 02:04 Temperature 37.1 C Temperature Source Oral Sepsis Recent Fever Within 48 Hours No Sepsis Action Taken by Nursing No Action Required Pulse Rate 96 H Pulse Rate [Right Finger] 85 78 Pulse Rhythm [Right Finger] Regular Regular Pulse Strength [Right Finger] Normal Normal Respiratory Rate 20 18 18 Respiratory Effort / Characteristics Non-Labored Spontaneous Non-Labored Respiratory Depth Normal Normal Respiratory Pattern Blood Pressure 143/82 H Blood Pressure [Right Arm] 127/72 138/76 Blood Pressure Mean 102 Blood Pressure Mean [Right Arm] 90 96 Blood Pressure Position Sitting Blood Pressure Position [Right Arm] Pulse Oximetry 97 96 98 Oxygen Delivery Method Room Air Room Air 05/17/18 02:15 Temperature 36.5 C Temperature Source Oral Sepsis Recent Fever Within 48 Hours Sepsis Action Taken by Nursing Pulse Rate Pulse Rate [Right Finger] 81 Pulse Rhythm [Right Finger] Pulse Strength [Right Finger] Respiratory Rate 16 Respiratory Effort / Characteristics Non-Labored Spontaneous Respiratory Depth Normal Respiratory Pattern Regular Blood Pressure Blood Pressure [Right Arm] 145/77 H Blood Pressure Mean Blood Pressure Mean [Right Arm] 99 Blood Pressure Position Blood Pressure Position [Right Arm] Sitting Pulse Oximetry 97 Oxygen Delivery Method Room Air Laboratory Data Result diagrams: 05/16/18 23:55 05/16/18 23:55 Lab Results 05/16/18 05/16/1805/16/19 Range/Units 23:55 23:55 23:55 WBC 13.91 H (4.8-10.8) K/uL RBC 4.63 (4.2-5.4) M/uL Hgb 13.7 (12.0-16.0) g/dL Hct 41.5 (37-47) % MCV 89.6 (80-100) fL MCH 29.6 (25-34) pg MCHC 33.0 (32-36) g/dL RDW Std Deviation 50.0 H (36.4-46.3) fL RDW Coeff of Holly 15.3 H (11.5-14.5) % Plt Count 502 H (130-400) K/uL MPV 9.9 (7.4-10.4) fL Immature Gran % (Auto) 0.3 % Neut % (Auto) 66.0 % Lymph % (Auto) 23.9 % Garfield % (Auto) 6.8 % Eos % (Auto) 2.7 % Baso % (Auto) 0.3 % Immature Gran # (Auto) 0.04 H (0.00-0.02) K/uL Neut # (Auto) 9.18 H (1.4-6.5) K/uL Lymph # (Auto) 3.33 (1.2-3.4) K/uL Garfield # (Auto) 0.94 H (0.11-0.59) K/uL Eos # (Auto) 0.38 (0-0.5) K/uL Baso # (Auto) 0.04 (0-0.2) K/uL ESR 40 H (0-21) mm/hr PT 10.7 (9.0-12.0) Seconds INR 1.1 (0.9-1.1) Sodium (136-145) mmol/L Potassium (3.5-5.1) mmol/L Chloride (98-107) mmol/L Carbon Dioxide (21-32) mmol/L Anion Gap (3-11) BUN (7-18) mg/dl Creatinine (0.6-1.2) mg/dl Est Cr Clr Drug Dosing ml/min Est GFR ( Amer) Est GFR (Non-Af Amer) BUN/Creatinine Ratio (10-20) Glucose (70-99) mg/dl Lactate (0.4-2.0) mmol/L Calcium (8.5-10.1) mg/dl C-Reactive Protein (0-0.29) mg/dl 05/16/18 05/17/18 Range/Units 23:55 01:33 WBC (4.8-10.8) K/uL RBC (4.2-5.4) M/uL Hgb (12.0-16.0) g/dL Hct (37-47) % MCV (80-100) fL MCH (25-34) pg MCHC (32-36) g/dL RDW Std Deviation (36.4-46.3) fL RDW Coeff of Holly (11.5-14.5) % Plt Count (130-400) K/uL MPV (7.4-10.4) fL Immature Gran % (Auto) % Neut % (Auto) % Lymph % (Auto) % Garfield % (Auto) % Eos % (Auto) % Baso % (Auto) % Immature Gran # (Auto) (0.00-0.02) K/uL Neut # (Auto) (1.4-6.5) K/uL Lymph # (Auto) (1.2-3.4) K/uL Garfield # (Auto) (0.11-0.59) K/uL Eos # (Auto) (0-0.5) K/uL Baso # (Auto) (0-0.2) K/uL ESR (0-21) mm/hr PT (9.0-12.0) Seconds INR (0.9-1.1) Sodium 138 (136-145) mmol/L Potassium 3.7 (3.5-5.1) mmol/L Chloride 106 (98-107) mmol/L Carbon Dioxide 27 (21-32) mmol/L Anion Gap 5.0 (3-11) BUN 34 H (7-18) mg/dl Creatinine 1.18 (0.6-1.2) mg/dl Est Cr Clr Drug Dosing 57.6 ml/min Est GFR ( Amer) 55.7 Est GFR (Non-Af Amer) 48.0 BUN/Creatinine Ratio 28.6 H (10-20) Glucose 88 (70-99) mg/dl Lactate 1.0 (0.4-2.0) mmol/L Calcium 9.5 (8.5-10.1) mg/dl C-Reactive Protein 1.56 H (0-0.29) mg/dl Administered Medications Dextrose/Lactated Ringer's (D5w And Lactated Ringers) 1,000 mls @ 80 mls/hr IV .[id number] JONATHAN Stop: 05/18/18 03:17 Last Infusion: 05/17/18 05:28 Dose: 80 mls/hr Admin: 05/17/18 03:18 Dose: 80 mls/hr Discontinued Medications Ceftriaxone Sodium (Rocephin) 1,000 mg in 50 mls @ 100 mls/hr IV NOW STA Stop: 05/17/18 01:31 Last Infusion: 05/17/18 02:38 Dose: 0 mls/hr Admin: 05/17/18 02:02 Dose: 100 mls/hr Vancomycin HCl 2,000 mg/ (Sodium Chloride) 540 mls @ 200 mls/hr IV NOW ONE Stop: 05/17/18 03:43 Last Infusion: 05/17/18 05:55 Dose: 0 mls/hr Admin: 05/17/18 02:33 Dose: 200 mls/hr Discharge Plan Visit Data *Final* Discharge Date/Time: 05/17/18 02:09 Chief Complaint: Knee Injury/Pain Stated Complaint: KNEE PAIN AND REDNESS ED Provider: Jose M Wilson Discharge Problem: Cellulitis of right knee, Asplenia Patient Disposition: Admitted As Inpatient Discharge Instructions Interventions: ED Discharge Assessment Last Done: 05/17/18 02:09 The scribe's documentation has been prepared under my direction and personally reviewed by me in its entirety. I confirm that the note above accurately reflects all work, treatment, procedures, and medical decision making performed by me.
[2018-05-17 08:58] LABS: Basophils # (auto) 0.05 K/uL (0-0.2); Basophils % (auto) 0.5 %; Eosinophils # (auto) 0.44 K/uL (0-0.5); Hematocrit (blood only) 37.4 % (37-47); Hemoglobin 12.2 g/dL (12.0-16.0); Immature Granulocytes # (auto) 0.03 K/uL (0.00-0.02); Immature Granulocytes % (auto) 0.3 %; Lymphocytes # (auto) 3.14 K/uL (1.2-3.4); Lymphocytes % (auto) 28.7 %; Mean Corpuscular Hgb Conc 32.6 g/dL (32-36); Mean Corpuscular Volume 89.3 fL (80-100); Mean Platelet Volume 9.6 fL (7.4-10.4); Monocytes # (auto) 0.98 K/uL (0.11-0.59); Neutrophils # (auto) 6.29 K/uL (1.4-6.5); Neutrophils % (auto) 57.5 %; Platelet Count 446 K/uL (130-400); RDW Coefficient of Variation 14.9 % (11.5-14.5); RDW Standard Deviation 48.6 fL (36.4-46.3); Red Blood Count 4.19 M/uL (4.2-5.4); White Blood Count 10.93 K/uL (4.8-10.8)
--- NOTE | 2018-05-17 09:55 | Orthopedic Consultation ---
Date of Consultation May 17, 2018 Assessment & Plan (1) Cellulitis of right knee: Low suspicion for septic total knee arthroplasty at this time, the patient 's tram-incisional cellulitis/hyperemia is improving with IV antibiotics overnight, WBC is improving 13->10 this morning. Clinically if the patient's labs and symptoms worsen, would consider arthrocentesis of the right knee to test synovial fluid. We will also obtain ultrasound of the quad tendon to rule out any related injury which could be contributing to hyperemia. Recommend ice and elevation, may weight-bear as tolerates, continue with IV antibiotics at this time, trend inflammatory labs, follow-up blood cultures. We will follow with you. Thank you for the consultation. (2) Hyperemia: History of Present Illness Reason for Consultation: Right knee cellulitis Attending Physician: Garima Marina MD History of Present Illness The patient is a 67-year-old female with past medical history for hypertension, GERD, anxiety, hypothyroidism, lymphoma with splenectomy, and right total knee arthroplasty performed in June 2017. Patient reports pain intermittently over the last 10 months and issues with her patella otherwise denies fevers and chills nausea vomiting shortness of breath chest pain. Patient reports that she noticed discoloration of the proximal incision yesterday which progressed to the entire incision over the period of 1 day. She was subsequently seen and evaluated at [facility] emergency department and found to have elevated inflammatory markers and subsequently admitted for further inpatient treatment. Patient denies trauma to the knee, admits to gastrointestinal illness this past week. Allergies Allergy/AdvReac Type Severity Reaction Status Date / Time amoxicillin Allergy Mild itching - Verified 05/17/18 00:24 HAS TAKEN SINCE WITHOUT TROUBLE tramadol AdvReac Intermediate contraindicated Verified 05/17/18 00:24 d/t taking wellbutrin per pt Home Medications Home Medications Medication Instructions Recorded Confirmed Type aspirin [Aspirin Low Dose] 81 mg PO DAILY 05/17/18 05/17/18 History bupropion HCl [Wellbutrin XL] 300 mg PO QAM 05/17/18 05/17/18 History docusate sodium 100 mg PO DAILY 05/17/18 05/17/18 History escitalopram oxalate [Lexapro] 20 mg PO DAILY 05/17/18 05/17/18 History famotidine [Pepcid] 20 mg PO DAILY 05/17/18 05/17/18 History meloxicam 15 mg PO DAILY 05/17/18 05/17/18 History triamterene-hydrochlorothiazid 1 tab PO DAILY 05/17/18 05/17/18 History Patient History Medical History Anxiety Arthritis Asthma Depression GERD (gastroesophageal reflux disease) Hypothyroidism Lymphoma Surgical History History of section History of cholecystectomy History of splenectomy History of total knee replacement Social History Current Living Situation: Spouse and Family Other Information That Helps Us Care for You: No Feels Safe at Home: Yes Safety Concerns: Feels Safe At This Time Smoking Status: Never smoker Do You Dip or Chew Tobacco: No Second Hand Exposure: No Tobacco Cessation Education Requested by Patient: No Hx Alcohol Use: No Hx Substance Use: No Beliefs That Will Affect Care: None Communication Ability: Effective Painting Supervisor Required: No Review of Systems Constitutional: as per Subjective / HPI Physical Exam 2 Vital Signs (Past 24 Hours): Last Vital Signs Temp 37.0 C 05/17/18 07:33 Pulse 73 05/17/18 07:33 Resp 18 05/17/18 07:33 BP 117/69 05/17/18 07:33 Pulse Ox 96 05/17/18 07:33 Physical Exam: Right lower extremity is neurovascularly sensory intact, + EHL/ FHL/TA 4/GS, compartment soft nontender, incision is clean dry and intact, there is increased hyperemia most significant on the proximal incision overlying the quad tendon and patella measuring 5 cm x 15 cm. Discoloration more noticeable on the proximal incision, hyperemia did not improve with elevation of the leg. Point tenderness overlying MCL, ligamentously stable. Painless range of motion 0-120 degrees of flexion. Mild knee effusion. There is no extensor lag, intact straight leg raise.
[2018-05-17] MEDS: ESCITALOPRAM OXALATE 20 MG TAB PO SCH (10:55)
[2018-05-17] MEDS: BuPROPion XL 300 MG TABCR PO SCH (10:55)
[2018-05-17] MEDS: ARMOUR THYROID 30 MG TAB PO SCH (10:55)
[2018-05-17] MEDS: DOCUSATE SODIUM 100 MG CAP PO SCH (10:55)
[2018-05-17] MEDS: FAMOTIDINE 20 MG TAB PO SCH (10:55)
--- NOTE | 2018-05-17 11:58 | XRay Report ---
RIGHT KNEE 3 VIEWS CLINICAL HISTORY: Right knee pain and bruising. Swelling. FINDINGS: AP, crosstable lateral, and sunrise views of the right knee are compared to study dated 06/12. The skeletal structures are osteopenic. No fracture is identified. A right knee arthroplasty is in near anatomic alignment. No periprosthetic lucency is identified. There has been undersurface r emodeling of the patella. A large joint effusion is identified. Soft tissue edema is present around t he knee. Patellar tilt is noted on the sunrise view. IMPRESSION: 1. Soft tissue edema and large joint effusion. No acute bony abnormality is seen. 2. A right knee arthroplasty is noted. Electronically signed by: Brennan Yeung M.D. 05/17/2018 11:56 AM
--- NOTE | 2018-05-17 12:15 | Communication Note ---
Date of Service: May 17, 2018 Patient was admitted for a right knee cellulitis with concern for septic joint. She is status post right TKA in Jun 2017. Right knee erythema is stable, did not increase overnight. WBC count also improved with IV abx. Pt. complains of tenderness to palpation over medial aspect of knee and posterior knee bilaterally. She has full range of motion but does state pain increases with ambulation. Ortho consulted. General: Resting comfortably in no apparent distress HEENT: NC/AT; PERRLA with EOMI; [place] conjunctiva, MMM. Neck: Supple and nontender Cardiac: RRR w/o murmurs, gallops or rubs Lungs: CTA bilaterally Abdomen: Bowel normoactive X 4; Nontender to palpation Extremities: Warm. Mild knee effusion noted, erythema on anterior aspect of knee (outlined with marker). No tenderness to palpation on exam. Neuro: No focal weakness Skin: See extremities. Assessment: Mrs. Martinez is a 67 y/o female with h/o Meniere's disease, GERD, Anxiety/Depression, Hypothyroidism, Lymphoma and right TKA in Jun 2017. She presented to the ER with cellulitis of the right knee. Plan: 1. Cellulitis of the right knee - S/p right TKA in Jun 2017; concern for septic joint due to rapid development of erythema. - Has a leukocytosis, WBC now improving after starting IV abx; CRP elevated at admission. - Consulted ortho, low suspicision for septic joint. Will obtain US of quad tendon to rule out injury. - Knee XR: soft tissue edema and large joint effusion. - Continue Ceftriaxone and Vancomycin IV for empiric coverage. Order MRSA swab to determine if Vanc if necessary for gram pos coverage. - IV fluids at 80 cc/hr - can likely d/c on 05/18/18. - Morphine prn pain. 2. Meniere's Disease - Restarted HCTZ-Triamterene as prescribed. 3. Hypothyroidism - Continue [place] thyroid 30 mg qAM as prescribed. -check TSH in AM 4. GERD - Continue Famotidine 20 mg daily as prescribed. 5. Depression/Anxiety - Continue Welbutrin 300 mg qAM and Lexapro 20 mg daily as prescribed. 6. H/o Lymphoma - Diagnosed ~10 years ago. S/p 6 cycles of CHOP, currently in remission. FEN/GI: Regular diet; IVFs at 80 cc/hr. DVT ppx: Start Lovenox 40 mg subQ q24hr. FULL CODE Dispo: Med/surg for IV abx. PA Supervision Note: I did not personally see or examine the patient today, but I verified all acevedo points of SAURABH Hutchison's assessment and plan with the following exceptions/ additions: None Garima Marina M.D.
--- NOTE | 2018-05-17 13:29 | Ultrasound Report ---
ULTRASOUND OF THE RIGHT KNEE NONVASCULAR CLINICAL HISTORY: Right knee pain and swelling. Clinical concern for quadriceps tendon rupture. COMPARISON STUDY: Radiographs of the right knee dated 05/16/2018. FINDINGS: Real-time, grayscale, and color flow sonography of the soft tissues of the right knee is pe rformed. The quadriceps tendon appears intact. There is a complex joint effusion. This measures appro ximately 8.9 x 5.3 x 4.4 cm in aggregate dimension. Overlying soft tissue edema is noted. IMPRESSION: 1. The quadriceps tendon appears intact. 2. There is a complex joint effusion. Correlate clinically for evidence of infection or hemorrhage. 3. Soft tissue edema is present around the knee. Electronically signed by: Brennan Yeung M.D. 05/17/2018 1:28 PM
[2018-05-17] MEDS: TRIAMTERENE/HCTZ 37.5/25MG CAP PO SCH (13:30)
[2018-05-17] MEDS: ENOXAPARIN INJ 40 MG/0.4 ML SYR SQ SCH (13:52)
--- NOTE | 2018-05-17 15:15 | Pharmacy Report ---
Pharmacy Abx Initial Consult - Date of Service May 17, 2018 - Pharmacy Dosing Scope Date of Consult: 05/17/18 Consultation requested by: Dr. Prado Pharmacy is consulted to initiate vancomcyin IV dosing therapy, order appropriate labs and adjust drug dose/frequency. - Subjective The patient is a 67 year old F admitted on 05/17/18 01:45. - Objective Height: 5 ft 7.5 in Weight: 111.4 kg Vital Signs (Past 12hrs): Vital Signs Temp Pulse Resp BP Pulse Ox 05/17/18 07:33 37.0 C 73 18 117/69 96 Lab Results (24hrs): Laboratory Tests (24 Hours) 05/17/18 05/16/18 05/16/18 08:45 23:55 23:55 WBC 10.93 H 13.91 H Neut # (Auto) 6.29 9.18 H ESR Creatinine 1.18 Est Cr Clr Drug Dosing 57.6 C-Reactive Protein 1.56 H 05/16/18 23:55 WBC Neut # (Auto) ESR 40 H Creatinine Est Cr Clr Drug Dosing C-Reactive Protein Micro Results: 05/17/18 01:10 Blood Culture - Pending Blood 05/17/18 01:23 Blood Culture - Pending Blood - Assessment & Plan Assessment * 67 year old F admitted for a right knee cellulitis with concern for septic joint * S/p right TKA in Jun 2017 Plan Vancomycin IV * Estimated PK Parameters: Vd 0.57 L/kg, Ron 0.053 hr-1, t1/2 13 hr * Loading dose: 2000 mg (18 mg/kg) * Maintenance dose: 1500 mg IV (13.5 mg/kg) every 16 hours * Goal trough level for septic joint: 15 to 20 mcg/mL * Trough ordered for 05/19 @1730 * A less than traditional dose and/or extended dosing interval has/have been selected due to likelihood of drug accumulation in obese patient Pharmacy will continue to follow and will adjust dose/frequency as necessary. Thank you.
[2018-05-17] MEDS: cefTRIAXone SODIUM 2,000 MG in DEXTROSE 5% 50 ML IV SCH (17:40)
[2018-05-17] MEDS: VANCOMYCIN HCL 1,500 MG in SODIUM CHLORIDE 0.9% 500 ML IV SCH (18:39)
[2018-05-18 05:48] LABS: Hematocrit (blood only) 35.5 % (37-47); Hemoglobin 12.1 g/dL (12.0-16.0); Mean Corpuscular Hgb Conc 34.1 g/dL (32-36); Mean Corpuscular Volume 89.2 fL (80-100); Platelet Count 459 K/uL (130-400); RDW Coefficient of Variation 15.1 % (11.5-14.5); RDW Standard Deviation 49.2 fL (36.4-46.3); Red Blood Count 3.98 M/uL (4.2-5.4); White Blood Count 8.72 K/uL (4.8-10.8)
[2018-05-18 06:27] LABS: BUN Creatinine Ratio 24.6 (10-20); Calcium 8.4 mg/dl (8.5-10.1); Creatinine Clr Calc Pharmacy 86.5 ml/min; Est GFR (African American) 85.2; Est GFR (Non-African American) 73.5; Potassium 3.9 mmol/L (3.5-5.1)
[2018-05-18 06:33] LABS: C Reactive Protein 2.49 mg/dl (0-0.29)
--- NOTE | 2018-05-18 07:14 | History & Physical Bridge Note ---
Date of Service May 18, 2018 History & Physical Bridge Note I have examined the patient, reviewed the History & Physical and in the interval since the performance of the History & Physical I have noted the following changes of clinical significance: no changes noted The correct side is right
--- NOTE | 2018-05-18 07:39 | Operative Report ---
Post Operative Report Pre & Post Diagnosis Medial and lateral meniscal tear Procedure Partial medial and lateral meniscectomy Surgeon Yassine Sharp MD Forming Machine Operator None Estimated Blood Loss 10 Findings Consistent with Post-Op Diagnosis Specimens None Anesthesia Type Spinal Complications none Disposition Accompanied Patient To Recovery: No Disposition: Recovery Room Indications Knee pain Description of Procedure Patient's right knee was prepped and draped in the usual sterile manner. The limb was exsanguinated with elevation and the tourniquet was inflated to 350 mmHg. The anterolateral portal was used for insertion of the scope. Patellofemoral joint showed minimal chondral change. Medial meniscus was identified and probed and was found to be a horizontal cleavage tearing posterior horn of the medial meniscus. This was debrided using the 4 5 incisor blade. Intact anterior and posterior cruciate ligaments were identified and probed and found to be intact. The knee was brought to [id number] position where he was found to be a complex tear the posterior horn of the lateral meniscus. A partial lateral meniscectomy was carried out. The wounds were closed using 4-0 nylon simple sutures sterile dressing of sterile 4 x 4's sterile Webril umbilicus was applied. The patient tolerated the procedure well. I attest to the content of the Intraoperative Record and any orders documented therein. Any exceptions are noted below.
[2018-05-18] MEDS: TRIAMTERENE/HCTZ 37.5/25MG CAP PO SCH (09:01)
[2018-05-18] MEDS: DOCUSATE SODIUM 100 MG CAP PO SCH (09:01)
[2018-05-18] MEDS: ENOXAPARIN INJ 40 MG/0.4 ML SYR SQ SCH (09:01)
[2018-05-18] MEDS: ESCITALOPRAM OXALATE 20 MG TAB PO SCH (09:01)
[2018-05-18] MEDS: FAMOTIDINE 20 MG TAB PO SCH (09:02)
[2018-05-18] MEDS: ARMOUR THYROID 30 MG TAB PO SCH (09:02)
[2018-05-18] MEDS: BuPROPion XL 300 MG TABCR PO SCH (09:02)
[2018-05-18] MEDS: VANCOMYCIN HCL 1,500 MG in SODIUM CHLORIDE 0.9% 500 ML IV SCH (09:46)
--- NOTE | 2018-05-18 13:38 | Progress Note ---
DATE: 05/18/2018 CHIEF COMPLAINT: Right knee pain. HISTORY OF PRESENT ILLNESS: The patient was admitted 2 days ago with a suspected cellulitis about the right knee. She has been on IV antibiotics and has seen continued improvement. PHYSICAL EXAMINATION: Today reveals mild effusion. No erythema or significant warmth is noted. ASSESSMENT: Cellulitis, right total knee, successfully being treated with IV antibiotics. RECOMMENDATIONS: We will continue IV antibiotics overnight and consider discharge soon on an oral agent.
--- NOTE | 2018-05-18 13:53 | Hospitalist Progress Note ---
Date of Service May 18, 2018 Assessment & Plan (1) Cellulitis of right knee: Cellulitis R knee due history of TKA - patient with history of TKA/ hardware and is asplenic. Responding to IV abx - continue ceftriaxone and vanco Ortho consulted - no surgical intervention at this time (2) HTN (hypertension): stable, continue triamterine/ hctz (3) Hypothyroid: continue home [place] Thyroid (4) GERD (gastroesophageal reflux disease): continue famotidine (5) DVT prophylaxis: Enoxaparin, SCDs Full code Subjective Ms. Martinez is feeling better, feels her knee redness and swelling is improving. She has been ambulating around the room which is somewhat painful. Review of Systems All systems reviewed & are unremarkable except as noted in HPI & below Physical Exam 2 Vital Signs (Past 24 Hours): Last Vital Signs Temp 36.9 C 05/18/18 07:00 Pulse 78 05/18/18 07:00 Resp 18 05/18/18 07:00 BP 133/84 05/18/18 07:00 Pulse Ox 94 05/18/18 07:00 Physical Exam: General: no distress Eyes: normal inspection, PERLL Respiratory: chest non tender, clear to auscultation, normal breath sounds, no respiratory distress, no accessory muscle use Cardiac: regular rate and rhythm, no rub or gallop, no murmur, no edema, no jvd GI/: active bowel sounds, no abd pain or tenderness, soft, non distended Extremities: normal range of motion, normal strength, non tender Neuro/Psych: alert and oriented x 3, normal mood and affect Skin: normal color, dry, erythema over left knee within the demarcation line and mild edema Results & Data Laboratory Results Abnormal lab results 05/18/18 05/18/18 05/18/18 Range/Units 05:20 05:20 05:20 RBC 3.98 L (4.2-5.4) M/uL Hct 35.5 L (37-47) % RDW Std Deviation 49.2 H (36.4-46.3) fL RDW Coeff of [place] 15.1 H (11.5-14.5) % Plt Count 459 H (130-400) K/uL ESR 22 H (0-21) mm/hr BUN 20 H (7-18) mg/dl BUN/Creatinine Ratio 24.6 H (10-20) Glucose 115 H (70-99) mg/dl Calcium 8.4 L (8.5-10.1) mg/dl C-Reactive Protein 2.49 H (0-0.29) mg/dl
[2018-05-18] MEDS: cefTRIAXone SODIUM 2,000 MG in DEXTROSE 5% 50 ML IV SCH (18:05)
[2018-05-19] MEDS: VANCOMYCIN HCL 1,500 MG in SODIUM CHLORIDE 0.9% 500 ML IV SCH ×2 (01:51→18:41)
[2018-05-19] MEDS: DOCUSATE SODIUM 100 MG CAP PO SCH (09:26)
[2018-05-19] MEDS: ESCITALOPRAM OXALATE 20 MG TAB PO SCH (09:26)
[2018-05-19] MEDS: FAMOTIDINE 20 MG TAB PO SCH (09:27)
[2018-05-19] MEDS: ENOXAPARIN INJ 40 MG/0.4 ML SYR SQ SCH (09:27)
[2018-05-19] MEDS: ARMOUR THYROID 30 MG TAB PO SCH (09:27)
[2018-05-19] MEDS: TRIAMTERENE/HCTZ 37.5/25MG CAP PO SCH (09:27)
[2018-05-19] MEDS: BuPROPion XL 300 MG TABCR PO SCH (09:28)
[2018-05-19 10:37] LABS: Basophils # (auto) 0.06 K/uL (0-0.2); Basophils % (auto) 0.7 %; Eosinophils # (auto) 0.46 K/uL (0-0.5); Eosinophils % (auto) 5.3 %; Hematocrit (blood only) 38.8 % (37-47); Hemoglobin 12.9 g/dL (12.0-16.0); Immature Granulocytes # (auto) 0.02 K/uL (0.00-0.02); Immature Granulocytes % (auto) 0.2 %; Lymphocytes # (auto) 3.08 K/uL (1.2-3.4); Lymphocytes % (auto) 35.7 %; Mean Corpuscular Hgb Conc 33.2 g/dL (32-36); Mean Corpuscular Volume 89.6 fL (80-100); Mean Platelet Volume 9.8 fL (7.4-10.4); Monocytes # (auto) 0.69 K/uL (0.11-0.59); Neutrophils # (auto) 4.32 K/uL (1.4-6.5); Neutrophils % (auto) 50.1 %; Platelet Count 472 K/uL (130-400); RDW Standard Deviation 49.1 fL (36.4-46.3); Red Blood Count 4.33 M/uL (4.2-5.4); White Blood Count 8.63 K/uL (4.8-10.8)
[2018-05-19 10:54] LABS: BUN Creatinine Ratio 19.6 (10-20); Calcium 8.9 mg/dl (8.5-10.1); Creatinine Clr Calc Pharmacy 69.7 ml/min; Est GFR (African American) 65.6; Est GFR (Non-African American) 56.6; Potassium 3.7 mmol/L (3.5-5.1)
--- NOTE | 2018-05-19 14:13 | Orthopedic Progress Note ---
Date of Service May 19, 2018 Assessment & Plan (1) Cellulitis of right knee: Patient is markedly improved since yesterday. Continue IV antibiotics or transition to p.o. antibiotics as per med service. Continue ambulation weightbearing as tolerated and gentle range of motion as tolerated. No further input from orthopedics at this time. We will sign off. Patient may follow-up with Dr. Sharp for her next scheduled appointment. Subjective Patient is lying in bed. She is awake and alert and oriented. She has no new complaints today. She states that her knee is feeling much better today and that it looks better today as well. Physical Exam 2 Vital Signs (Past 24 Hours): Last Vital Signs Temp 36.7 C 05/19/18 07:31 Pulse 71 05/19/18 07:31 Resp 18 05/19/18 07:31 BP 122/71 05/19/18 07:31 Pulse Ox 94 05/19/18 07:31 Physical Exam: On examination of her right knee, the area that had been marked has boundaries for her erythema showed little to no erythema today. She also has much less swelling around the knee and she has better range of motion without pain. No overt pain on palpation of the knee at this time and range of motion is to approximately 95- 100 degrees without discomfort.
--- NOTE | 2018-05-19 15:08 | Hospitalist Progress Note ---
Date of Service May 19, 2018 Assessment & Plan (1) Cellulitis of right knee: Cellulitis R knee due history of TKA - patient with history of TKA/ hardware and is asplenic. Responding to IV abx - continue ceftriaxone and vanco - Ortho consulted - no surgical intervention, will sign off. Transition patient to po medications tomorrow if cultures have remained negative. (2) HTN (hypertension): stable, continue triamterine/ hctz (3) Hypothyroid: continue home [place] Thyroid (4) GERD (gastroesophageal reflux disease): continue famotidine (5) DVT prophylaxis: Enoxaparin, SCDs Full code Dispo: can likely dc home tomorrow Subjective Ms. Martinez's knee is improved today, less edema and less erythema. Pain in her left upper thigh is better as well. She has been ambulating and feels good on her feet. Review of Systems All systems reviewed & are unremarkable except as noted in HPI & below Physical Exam 2 Vital Signs (Past 24 Hours): Last Vital Signs Temp 36.7 C 05/19/18 07:31 Pulse 71 05/19/18 07:31 Resp 18 05/19/18 07:31 BP 122/71 05/19/18 07:31 Pulse Ox 94 05/19/18 07:31 Physical Exam: General: no distress Eyes: normal inspection, PERLL Respiratory: chest non tender, clear to auscultation, normal breath sounds, no respiratory distress, no accessory muscle use Cardiac: regular rate and rhythm, no rub or gallop, no murmur, no edema, no jvd GI/: active bowel sounds, no abd pain or tenderness, soft, non distended Extremities: normal range of motion, normal strength, non tender Neuro/Psych: alert and oriented x 3, normal mood and affect Skin: normal color, dry, right knee with improving edema, very little erythema Results & Data Laboratory Results Abnormal lab results 05/19/18 05/19/18 Range/Units 10:24 10:24 RDW Std Deviation 49.1 H (36.4-46.3) fL RDW Coeff of [place] 15.0 H (11.5-14.5) % Plt Count 472 H (130-400) K/uL [place] # (Auto) 0.69 H (0.11-0.59) K/uL BUN 20 H (7-18) mg/dl Glucose 143 H (70-99) mg/dl
[2018-05-19] MEDS ORDERED: VANCOMYCIN TROUGH ONE (17:30)
[2018-05-19] MEDS: cefTRIAXone SODIUM 2,000 MG in DEXTROSE 5% 50 ML IV SCH (17:44)
--- NOTE | 2018-05-19 20:16 | Pharmacy Report ---
Pharmacy Abx Dose Short Note - Date of Service May 19, 2018 - Assessment & Plan Assessment 67 year old F receiving IV Vancomycin and Ceftriaxone (not a consult) for treatment of R knee cellulitis, possible infected TKA Day # 3 of antimicrobial therapy. Plan Vancomycin * Trough level of 10 mcg/mL is at lower end of therapeutic range. Given her obesity, BMI = 38, she is at risk for drug accumulation. Furthermore, per provider progress notes, patient is improving and responding to IV antibiotics. He may be transitioned to oral antibiotics soon. Therefore, hesitant to change dose at this time. * Continue dose of 1500 mg IV every 16 hours * Goal trough level for cellulitis : 10 to 15 mcg/mL * Trough level ordered for: 05/21/18 @ 0130 to reassess dosing Pharmacy will continue to follow and will adjust dose/frequency as necessary. Thank you.
[2018-05-20] MEDS: ESCITALOPRAM OXALATE 20 MG TAB PO SCH (08:18)
[2018-05-20] MEDS: FAMOTIDINE 20 MG TAB PO SCH (08:18)
[2018-05-20] MEDS: DOCUSATE SODIUM 100 MG CAP PO SCH (08:18)
[2018-05-20] MEDS: TRIAMTERENE/HCTZ 37.5/25MG CAP PO SCH (08:19)
[2018-05-20] MEDS: BuPROPion XL 300 MG TABCR PO SCH (08:19)
[2018-05-20] MEDS: ENOXAPARIN INJ 40 MG/0.4 ML SYR SQ SCH (08:19)
[2018-05-20] MEDS: ARMOUR THYROID 30 MG TAB PO SCH (08:19)
[2018-05-20 08:53] LABS: Creatinine Clr Calc Pharmacy 77.2 ml/min; Est GFR (African American) 74.2
[2018-05-20] MEDS: VANCOMYCIN HCL 1,500 MG in SODIUM CHLORIDE 0.9% 500 ML IV SCH (10:05)
--- NOTE | 2018-05-20 10:30 | Discharge Summary ---
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 Presents with pain and erythema overlying her R knee. This began as a small round area earlier in the day and has quickly expanded above and below the knee. Imaging in the ER reveals a small joint effusion. She is able to bend her knee and clinically does not appear to have a septic joint. She does not report any fevers. She does note that the knee becomes painful if she ambulates. Initial labs demonstrate leukocytosis, an elevated CRP and mild thrombocytosis. PMH: 1) Asthma 2) Anxiety 3) Lymphoma 2008 - remission was achieved after 6 cycles of CHOP 4) Asplenic 5) HTN 6) GERD 7) Hypothyroidism Surgical: 1) Splenectomy 2) Cholecystectomy 3) BL knee arthroscopy 4) R TKA 05/2017 Social: No history of drinking or smoking Family: Both parents with history of CAD - mother had an ascending aortic aneurysm Principal Diagnosis Cellulitis of right knee Discharge Exam Constitutional WD/WN, vitals as above Respiratory normal respiratory effort, lungs clear to auscultation Cardiovascular RRR, no murmur, no edema Musculoskeletal right knee erythema resolved, edema improving Skin no rashes, warm and dry Neurologic moves all extremities and awake Psychiatric A+Ox3, euthymic affect Discharge Data Allergies Allergy/AdvReac Type Severity Reaction Status Date / Time amoxicillin Allergy Mild itching - Verified 05/17/18 00:24 HAS TAKEN SINCE WITHOUT TROUBLE tramadol AdvReac Intermediate contraindicated Verified 05/17/18 00:24 d/t taking wellbutrin per pt Consultations 05/17/18 01:03 ED Decision to Admit Stat 05/17/18 01:35 Consult Orthopedic Surgery Routine 05/17/18 02:43 Consult Orthopedic Surgery Routine Ordered Studies 05/17/18 08:39 US extremity nonvascular Routine Hospital Course (1) Cellulitis of right knee: Cellulitis R knee due history of TKA - patient with history of TKA/ hardware and is asplenic. Responded to IV abx ceftriaxone and vanco - will discharge with doxycycline po Ortho consulted - no surgical intervention, will sign off. Will have patient follow up with them in a week and have them determine length of abx treatment. Will send patient with 2 weeks of doxy BC no growth (2) HTN (hypertension): stable, continue triamterine/ hctz (3) Hypothyroid: continue home [place] Thyroid (4) GERD (gastroesophageal reflux disease): continue famotidine (5) DVT prophylaxis: Enoxaparin, SCDs while inpatient Full code Total Time Total Time Spent Total Time Spent (In Minutes): greater than 30 minutes Total Time Includes: Examination of the Patient, Discharge Planning and Medication Reconciliation Discharge Plan Discharge Items Patient Disposition: Home - Self-Care Reason For Visit: INFECTION OF PROSTHETIC JOINT Discharge Diagnosis: infection of prosthetic joint Discharge Goals: Decrease discomfort and Improve disease control Activity: Resume your previous activity Activity Comment: gradually as tolerated Non-emergency contact: Primary Care Provider and Surgeon Call non-emergency contact if: you have any medication questions, your symptoms worsen, your pain is not controlled, your pain is worsening, your pain is unusual for you, you have a fever and your wound has increased redness Follow-up/Referrals: Yassine Sharp MD [Family Provider] - 05/27/18 10:45 am (Please, follow up with Dr. Sharp on FridayMay 27 at 10:45 am. *If you need to change this appointment, call the office at [phone].) Denita Shepard D.O. [Primary Care Provider] - 05/25/18 10:00 am (Please, follow up with Dr. Shepard on FridayMay 25 at 10:00 am. *If you need to change this appointment, call the office at [phone].) Diet: Regular Addtl Provider Instructions: Please notify your orthopedic surgeon right a way if you develop fever, chills or redness or swellling at the knee. You should start your first dose of doxycycline this evening. It is taken every 12 hours. You should complete your entire regimen of antibiotics. Please discuss with your orthopedist on duration of therapy. Doxycycline can cause photosensitivity so please use sunscreen or cover ups and sunglasses when outside until you have finished your course. You should also avoid taking the medication with dairy products. Doxycycline can cause gastrointestinal discomfort and nausea, you can try taking the medication with food to avoid this effect. Do not take bismuth (Pepto-Bismol), calcium, iron, magnesium, zinc , multivitamins with minerals, colestipol, cholestyramine, didanosine, or antacids within 2 hours of this drug.Take with a full glass of water. Do not lie down for at least 30 minutes after taking this drug. Prescriptions: New doxycycline hyclate 100 mg capsule 100 mg PO BID 14 Days Qty: 28 RF: 0 Continue aspirin [Aspirin Low Dose] 81 mg Tablet,Delayed Release (Dr/Ec) 81 mg PO DAILY RF: 0 escitalopram oxalate [Lexapro] 20 mg Tablet 20 mg PO DAILY RF: 0 bupropion HCl [Wellbutrin XL] 300 mg Tablet Extended Release 24 Hr 300 mg PO QAM RF: 0 meloxicam 15 mg Tablet 15 mg PO DAILY RF: 0 docusate sodium 100 mg Capsule 100 mg PO DAILY RF: 0 famotidine [Pepcid] 20 mg Tablet 20 mg PO DAILY RF: 0 triamterene-hydrochlorothiazid 37.5-25 mg Tablet 1 tab PO DAILY RF: 0 Visit Report Forms: [facility] Portal Stand-Alone Forms: [facility] Discharge Orders: Discharge Order (Routine); Ordered 05/20/18 Ordered By: Pily Teran Admission Data Admit Date/Time: 05/17/18 01:45 Attending Provider: Vinicius Lund Admit Provider: Richie Prado Primary Care Provider: Denita Shepard Other Providers: Richie Prado ; Luis Cortes Sarah Ann Service: Surgical Services
[2018-05-21] MEDS ORDERED: VANCOMYCIN TROUGH ONE (01:30)
== END 2018-05-20 13:50 | disposition home or self-care (01) | DRG 560 ==
LOC: ED 23:22 → 3N 05-17 01:45 → SUATTDRO 05-17 01:45 → 3N 05-17 02:09